=== PATIENT | male | born 1950 | race Caucasian/White ===

== ENCOUNTER → 2016-10-25 | Outpatient (CLI) | payer MEDICARE ==
[~2016-10-25] VITALS: Ht 172.7 cm; Wt 106.6 kg
[~2016-10-25] MED LIST: /PANT40TA; CIPR500T89 PO; COLA100C3 PO; DOXY100T; FLAG500T PO; LIDOCAINE 2% INJ 100 MG/5 ML SYRINGE As Ordered ONE; LISI2.5T; NICO21DI4; NORC1TAB4 PO; NORCOTAB PO; NS 1,000 ML IV SCH; OMEP40CA2 PO; PROPOFOL 200 MG/20 ML VIAL As Ordered ONE; VICO5TAB; VIT B 6; VITA100027; VITA500T; [UNRECOGNIZED DRUG - OTHER]; biotin
--- NOTE | 2016-10-25 16:18 | ROOR ---
Patient Name: Maximus Zelaya Procedure Date: 10/25/2016 3:40 PM Date of : 1950 Age: 65 Room: [facility] Gender: Male Note Status: Finalized Procedure: Colonoscopy Indications: Positive Cologuard test Providers: Francis THAKKAR MD Referring MD: Zaki Cleary NP Requesting Provider: Medicines: Monitored Anesthesia Care Complications: No immediate complications. Procedure: Pre-Anesthesia Assessment: - The heart rate, respiratory rate, oxygen saturations, blood pressure, adequacy of pulmonary ventilation, and response to care were monitored throughout the procedure. The Colonoscope was introduced through the anus and advanced to the cecum, identified by appendiceal orifice and ileocecal valve. The colonoscopy was performed without difficulty. The patient tolerated the procedure well. The quality of the bowel preparation was fair. Findings: The perianal and digital rectal examinations were normal. An infiltrative, centrally depressed non-obstructing small mass was found in the mid transverse colon. The mass was non-circumferential. The mass measured one cm in length. In addition, its diameter measured twelve mm. No bleeding was present. This was biopsied with a cold forceps for histology. Area was tattooed with an injection of Cindy ink. A few sessile polyps were found in the ascending colon. The polyps were diminutive in size. Polypectomy was not attempted. The colon (entire examined portion) was redundant. An area of mild melanosis was found in the entire colon. Impression: - Rule out malignancy, small infiltrative, centrally depressed tumor in the proximal to mid transverse colon. Biopsied. Tattooed. - Preparation of the colon was fair. Long Redundant colon. - A few diminutive polyps in the ascending colon. Resection not attempted. - Melanosis in the colon. Recommendation: - Await pathology results. - If the pathology report is malignant, then refer to a surgeon. - If the pathology report is benign, then repeat colonoscopy for attempt at piecemeal polypectomy. Francis Thakkar MD Francis THAKKAR MD 10/25/2016 4:18:50 PM This report has been signed electronically. Number of Addenda: 0 Note Initiated On: 10/25/2016 3:40 PM Estimated Blood Loss: Estimated blood loss: none.
[2016-10-25 16:30] VITALS: BP 130/78
== END ==
LOC: M OPP 13:25
PROVIDERS: ATTEND Internal Medicine Gastroenterology
DX: R19.5 Other fecal abnormalities (principal); D49.0 Neoplasm of unspecified behavior of digestive system; D12.2 Benign neoplasm of ascending colon; C18.9 Malignant neoplasm of colon, unspecified; Q43.8 Other specified congenital malformations of intestine; K63.89 Other specified diseases of intestine

== ENCOUNTER → 2016-11-15 | Outpatient (CLI) | payer MEDICARE ==
[~2016-11-15] MED LIST changes: -LIDOCAINE 2% INJ 100 MG/5 ML SYRINGE As Ordered ONE; -NS 1,000 ML IV SCH; -PROPOFOL 200 MG/20 ML VIAL As Ordered ONE
[2016-11-15 12:02] LABS: BASO % 0.5 % (0.0-1.0); EOS # 0.2 K/mm3 (0.0-0.50); EOS % 1.8 % (0.0-3.0); LARGE UNSTAINED CELL # 0.1 K/mm3 (0.0-0.4); LARGE UNSTAINED CELL % 1.6 % (0.0-4.0); LYMPH # 1.9 K/mm3 (1.5-4.5); LYMPH % 21.2 % (24.0-44.0); MEAN CORPUSCULAR HEMOGLOBIN 30.8 pg (27.0-33.0); MEAN CORPUSCULAR HGB CONC 33.1 g/dl (32.0-36.5); MONO # 0.6 K/mm3 (0.0-0.8); MONO % 7.1 % (0.0-5.0); NEUTROPHILS # 5.9 K/mm3 (1.8-7.7); NEUTROPHILS % 67.7 % (36.0-66.0); PLATELET COUNT, AUTOMATED 218 k/mm3 (150-450); RED CELL DISTRIBUTION WIDTH 12.9 % (11.5-14.5); WHITE BLOOD COUNT 8.7 K/mm3 (4.0-10.0)
[2016-11-15 12:37] LABS: ALBUMIN 3.3 GM/DL (3.2-5.2); ALKALINE PHOSPHATASE 87 U/L (45-117); ALT/SGPT 25 U/L (12-78); ANION GAP 9 MEQ/L (8-16); AST/SGOT 20 U/L (15-37); BILIRUBIN,TOTAL 0.5 MG/DL (0.2-1.0); BLOOD UREA NITROGEN 16 MG/DL (7-18); CALCIUM LEVEL 8.1 MG/DL (8.8-10.2); CARBON DIOXIDE LEVEL 25 MEQ/L (21-32); CHLORIDE LEVEL 107 MEQ/L (98-107); CHOLESTEROL LEVEL 198 MG/DL (<200); CREATININE FOR GFR 1.24 MG/DL (0.70-1.30); GLOMERULAR FILTRATION RATE > 60.0 (>49); GLUCOSE, FASTING 118 MG/DL (80-110); POTASSIUM SERUM 4.2 MEQ/L (3.5-5.1); SODIUM LEVEL 141 MEQ/L (136-145); TOTAL PROTEIN 6.6 GM/DL (6.4-8.2); TRIGLYCERIDES LEVEL 225 MG/DL (<150)
[2016-11-16 14:10] LABS: PSA TOTAL 1.3 ng/mL (0.0-4.0)
== END ==
LOC: M LAB 11:16
PROVIDERS: ATTEND Nurse Practitioner Family
DX: K21.9 Gastro-esophageal reflux disease without esophagitis (principal); Z12.5 Encounter for screening for malignant neoplasm of prostate; Z13.220 Encounter for screening for lipoid disorders; I10 Essential (primary) hypertension

== ENCOUNTER 2016-11-19 14:00 | Inpatient (IN) | payer MEDICARE ==
[~2016-11-19] VITALS: Ht 172.7 cm; Wt 106.2 kg
--- NOTE | 2016-11-25 10:28 | HPE ---
DATE OF ADMISSION: 11/26/2016 HISTORY OF PRESENT ILLNESS: The patient is a 66-year-old male who has had a Cologuard testing in August of this year and was referred to Dr. Thakkar's office and then had a followup of colonoscopy. Colonoscopy revealed a lesion in the transverse colon. The lesion was not a very large lesion and measured 1 cm in length and overall was up to 12 mm in diameter. Otherwise, this was biopsied and revealed adenocarcinoma. He tattooed this area and the implied that it was in the mid transverse colon. He came to the office for evaluation and plans for surgical treatment of this lesion. He has not had any previous colon cancers. No nausea or vomiting. No diarrhea. No significant constipation that is otherwise controlled well with stool softeners. He had a CT scan which revealed no evidence of metastatic disease. The primary was not appreciated on the CT scan itself. PAST MEDICAL HISTORY (significant for): 1. History of right kidney surgery for history of colon cancer. 2. History of perforated small bowel for small bowel obstruction with small-bowel resection. 3. History of chronic obstructive pulmonary disease. 4. History of morbid obesity. 5. History of gastroesophageal reflux disease. 6. History of pulmonary emphysema. MEDICATIONS (include the following): - Anoro Ellipta - aspirin 81 mg - cyclobenzaprine - Dulcolax - Flagyl - neomycin for a preoperative bowel prep - omega 3 - omeprazole - Probiotic PHYSICAL EXAMINATION: Reveals an obese white male who looks stated age. HEENT: Reveals an atraumatic, normocephalic head with extraocular movements intact. Pupils are equal and reactive to light. Sclerae nonicteric. Oropharynx clear without exudate or lesions. Neck: Supple without adenopathy. Lungs are diminished bilaterally with a few wheezes and crackles at the bases. Heart is regular. Abdomen is obese, nontender, nondistended. He has a diastasis rectus in the upper midline and he has a small umbilical hernia. He has had previous midline incision. Otherwise, no masses are appreciated. No splenomegaly. IMPRESSION AND PLAN: The patient has evidence of a transverse colon cancer. The plan for him is to undergo a laparoscopic-assisted transverse colectomy. I do feel with his right colectomy that he may have additional adhesions which may complicate operative intervention, but he also has a midline incision secondary to this perforated small bowel which may complicate operative intervention from a laparoscopic standpoint. We will attempt this laparoscopically; however, it may require an open approach. He understands this and would like to proceed with this. In addition, if this is a lesion that is closer to the hepatic flexure, given the presentation on the CAT scan of most of the cecum/hepatic flexure in the right upper quadrant, it may end up being an extended right colectomy instead of a true transverse colectomy, and everything will depend on the location of the lesion and the tattooed area. The operation was discussed with the patient. Preoperative antibiotics and bowel prep was discussed with the patient. The patient understands the risks include, but are not limited to infection, bleeding, damage to surrounding structures including bowel, bladder, nerves, vessels, liver, duodenum, pancreas, etc. He understands that there is a possibility of an ostomy, although very low likelihood. He also understands that there is a possibility of an anastomotic leak or complications associated with the anastomosis itself. More importantly, he understands that his morbid obesity and his chronic obstructive pulmonary disease (COPD) issues are a separate issue, but indeed will impact his postoperative outcome and will make it much more likely that he has respiratory issues postoperatively. He understands and would like to proceed with this as scheduled.
[2016-11-26] VITALS (7 sets, daily range): BP systolic 86–128; BP diastolic 50–58
[2016-11-26] MEDS ORDERED: LR 1,000 ML IV ONE (08:45)
[2016-11-26] MEDS ORDERED: PIPERACILLIN/TAZOBACTAM SOD 3.375 GM in D5W MINI-BAG PLUS 50 ML IV ONE (08:45)
[2016-11-26] MEDS ORDERED: METR500T10 (09:00)
[2016-11-26] MEDS ORDERED: CYCL10TA (09:00)
[2016-11-26] MEDS ORDERED: COMBAER6 (09:00)
[2016-11-26] MEDS ORDERED: GAVISOL3 (09:00)
[2016-11-26] MEDS ORDERED: IBUP80TA (09:00)
[2016-11-26] MEDS ORDERED: FLUT1SPR2 (09:00)
[2016-11-26] MEDS ORDERED: NEOM50TA (09:00)
[2016-11-26] MEDS ORDERED: BUPIVACAINE/EPIN 0.25% 30 ML VIAL As Ordered ONE (09:51)
[2016-11-26] MEDS ORDERED: BUPIVACAINE LIPOSOME/PF 1.3% 20 ML VIAL (13.3MG/ML)(EXPAREL) As Ordered ONE (11:50)
[2016-11-26] MEDS ORDERED: fentaNYL 250 MCG/5 ML INJECTION (J3010) As Ordered ONE (11:50)
[2016-11-26] MEDS ORDERED: MIDAZOLAM INJ 2 MG/2 ML VIAL (J2250) As Ordered ONE (11:50)
[2016-11-26] MEDS ORDERED: LIDOCAINE 2% INJ 100 MG/5 ML SDV (FOR ANES.) As Ordered ONE (11:50)
[2016-11-26] MEDS ORDERED: ONDANSETRON 4MG/2ML VIAL (J2405) As Ordered ONE (11:50)
[2016-11-26] MEDS ORDERED: dexameTHASONE 4 MG/ML 1ML VIAL (J1100) As Ordered ONE (11:50)
[2016-11-26] MEDS ORDERED: BUPIVACAINE HCL 0.25% 10 ML VIAL As Ordered ONE (11:50)
[2016-11-26] MEDS ORDERED: ROCURONIUM BROMIDE 50 MG/5 ML VIAL As Ordered ONE ×2 (11:50→13:25)
[2016-11-26] MEDS ORDERED: PROPOFOL 200 MG/20 ML VIAL As Ordered ONE (11:50)
[2016-11-26] MEDS ORDERED: KETOROLAC 60 MG/2 ML VIAL (J1885) As Ordered ONE (11:50)
[2016-11-26] MEDS ORDERED: HYDROmorphone HCL 2 MG/ML 1ML VIAL (J1170) As Ordered ONE (11:50)
[2016-11-26] MEDS ORDERED: NEOSTIGMINE 1MG/ML 5 ML SYRINGE (J2710) As Ordered ONE (12:10)
[2016-11-26] MEDS ORDERED: LABETALOL HCL 100 MG/20 ML VIAL As Ordered ONE (12:10)
[2016-11-26] MEDS ORDERED: GLYCOPYRROLATE INJ 0.2 MG/ML 2 ML VIAL As Ordered ONE (12:10)
[2016-11-26] MEDS: LR 1,000 ML IV SCH ×2 (15:47→22:50)
[2016-11-26] MEDS ORDERED: NS 1,000 ML IV SCH (15:47)
[2016-11-26] MEDS ORDERED: MORPHINE 1MG/ML IN 0.9% NACL 100ML IV BAG As Ordered ONE (15:51)
[2016-11-26] MEDS ORDERED: NALOXONE INJ 0.4 MG/1 ML VIAL (J2310) IV PRN (16:00)
[2016-11-26] MEDS ORDERED: PROMETHAZINE INJ 25 MG/ML VIAL (J2550) IV PRN (16:00)
[2016-11-26] MEDS ORDERED: EPIDURAL/PCA KEYS XX PRN (16:00)
[2016-11-26] MEDS ORDERED: ONDANSETRON 4MG/2ML VIAL (J2405) IV PRN ×3 (16:00→16:30)
[2016-11-26] MEDS ORDERED: MORPHINE 1MG/ML IN 0.9% NACL 100ML IV BAG IV PRN (16:00)
[2016-11-26] MEDS ORDERED: diphenhydrAMINE INJ 50MG/ML VIAL (J1200) IV PRN (16:00)
[2016-11-26] MEDS ORDERED: NALBUPHINE HCL 10 MG/ML AMP (J2300) IV PRN (16:00)
[2016-11-26] MEDS ORDERED: IPRATROPIUM 0.5MG/ALBUTEROL 2.5MG INH SOL UD 3ML (DUONEB)(J7620) NEB PRN (16:00)
[2016-11-26] MEDS ORDERED: METOCLOPRAMIDE INJ 10MG/2ML VIAL (J2765) IV PRN (16:00)
[2016-11-26] MEDS ORDERED: MORPHINE 2 MG/ML 1ML SYRINGE IV PRN (16:30)
[2016-11-26] MEDS ORDERED: fentaNYL 100 MCG/2 ML INJECTION (J3010) IV PRN (16:30)
[2016-11-26] MEDS ORDERED: LR 1,000 ML IV SCH (16:30)
[2016-11-26] MEDS: PIPERACILLIN/TAZOBACTAM SOD 3.375 GM in D5W MINI-BAG PLUS 50 ML IV SCH (18:00)
[2016-11-26] MEDS ORDERED: NS 1,000 ML IV ONE (19:00)
[2016-11-26] MEDS: IPRATROPIUM 0.5MG/ALBUTEROL 2.5MG INH SOL UD 3ML (DUONEB)(J7620) NEB SCH (20:00)
[2016-11-26] MEDS ORDERED: NACL IV STA (21:20)
[2016-11-26] MEDS ORDERED: HETASTARCH IV STA (21:20)
[2016-11-27 01:08] VITALS: BP 99/58
[2016-11-27] MEDS: IPRATROPIUM 0.5MG/ALBUTEROL 2.5MG INH SOL UD 3ML (DUONEB)(J7620) NEB SCH ×4 (02:00→20:00)
[2016-11-27 02:30] VITALS: BP 99/61
[2016-11-27] MEDS: LR 1,000 ML IV SCH ×2 (02:50→06:50)
[2016-11-27] MEDS: PIPERACILLIN/TAZOBACTAM SOD 3.375 GM in D5W MINI-BAG PLUS 50 ML IV SCH ×6 (05:23→23:27)
[2016-11-27 06:28] VITALS: BP 113/57
[2016-11-27 06:53] LABS: MEAN CORPUSCULAR HEMOGLOBIN 31.5 pg (27.0-33.0); MEAN CORPUSCULAR HGB CONC 34.4 g/dl (32.0-36.5); MEAN CORPUSCULAR VOLUME 91.5 fl (80.0-96.0); RED CELL DISTRIBUTION WIDTH 12.9 % (11.5-14.5); WHITE BLOOD COUNT 15.4 K/mm3 (4.0-10.0)
[2016-11-27 07:12] LABS: CALCIUM LEVEL 6.9 MG/DL (8.8-10.2); CREATININE FOR GFR 1.68 MG/DL (0.70-1.30); GLOMERULAR FILTRATION RATE 43.9 (>49)
[2016-11-27 07:16] LABS: POTASSIUM SERUM 5.3 MEQ/L (3.5-5.1)
[2016-11-27] MEDS: NS 1,000 ML IV SCH ×2 (08:01→18:15)
[2016-11-27] MEDS: ALVIMOPAN 12 MG CAPSULE (ENTEREG) PO SCH ×2 (09:57→19:24)
[2016-11-27] MEDS: PANTOPRAZOLE 40MG INJ (PROTONIX) (C9113) IV SCH (09:57)
[2016-11-27 10:00] VITALS: BP 119/62
[2016-11-27 14:00] VITALS: BP 135/68
[2016-11-27 20:00] VITALS: BP 112/67
[2016-11-28] VITALS: BP 105/63
[2016-11-28] MEDS: IPRATROPIUM 0.5MG/ALBUTEROL 2.5MG INH SOL UD 3ML (DUONEB)(J7620) NEB SCH ×4 (02:00→20:00)
[2016-11-28 04:00] VITALS: BP 109/62
[2016-11-28] MEDS: NS 1,000 ML IV SCH (05:40)
[2016-11-28] MEDS: PIPERACILLIN/TAZOBACTAM SOD 3.375 GM in D5W MINI-BAG PLUS 50 ML IV SCH (05:41)
[2016-11-28 06:03] VITALS: BP 113/68
[2016-11-28 07:04] LABS: MEAN CORPUSCULAR HGB CONC 33.2 g/dl (32.0-36.5); MEAN CORPUSCULAR VOLUME 93.6 fl (80.0-96.0); RED CELL DISTRIBUTION WIDTH 13.1 % (11.5-14.5); WHITE BLOOD COUNT 11.8 K/mm3 (4.0-10.0)
[2016-11-28 07:17] LABS: ANION GAP 4 MEQ/L (8-16); BLOOD UREA NITROGEN 20 MG/DL (7-18); CALCIUM LEVEL 7.3 MG/DL (8.8-10.2); CARBON DIOXIDE LEVEL 27 MEQ/L (21-32); CHLORIDE LEVEL 109 MEQ/L (98-107); CREATININE FOR GFR 1.15 MG/DL (0.70-1.30); GLOMERULAR FILTRATION RATE > 60.0 (>49); GLUCOSE, FASTING 116 MG/DL (80-110); POTASSIUM SERUM 4.4 MEQ/L (3.5-5.1); SODIUM LEVEL 140 MEQ/L (136-145)
[2016-11-28] MEDS: PANTOPRAZOLE 40MG INJ (PROTONIX) (C9113) IV SCH (09:00)
[2016-11-28] MEDS ORDERED: ACETAMINOPHEN TAB 650MG DOSE (2X325MG) PO PRN (09:45)
[2016-11-28] MEDS: OMEPRAZOLE 20 MG CAP PO SCH ×2 (10:01→20:17)
[2016-11-28] MEDS: ALVIMOPAN 12 MG CAPSULE (ENTEREG) PO SCH ×2 (10:03→20:18)
--- NOTE | 2016-11-28 13:15 | IPN ---
DATE: 11/28/2016 The patient overall has been doing well last night, did have some flatus overnight. No nausea. No vomiting. No fevers. No chills. He did have a low-grade temperature of 99 this morning, but otherwise has been doing well. 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 He is, at this time, not complaining of any additional pain or problems but does not feel that he can adequately get out of bed by himself to use the commode, thus he would like to keep the catheter in his bladder for another day which I feel is reasonable. His vitals were stable overnight. His intake and output show significant urine output this morning. PHYSICAL EXAMINATION: He is morbidly obese but he is nontender. He has no guarding. No rebound. No peritoneal signs. Mildly uncomfortable at the incision site which is not significant given the overall large size of his incision. IMPRESSION AND PLAN: The patient is status post right colectomy and my recommendation, at this time, is to have him increase his activity and once he continues to increase his activity over time, we will have him probably ready for removal of the catheter. Once we can remove his catheter then we can advance his activities slightly more. From a diet standpoint, we will start him on some clear liquids today and hopefully advance him to a regular diet tomorrow.
[2016-11-28 22:00] VITALS: BP 114/61
[2016-11-28] MEDS: zolPIDEM TARTRATE 10MG TAB PO PRN (22:55)
[2016-11-28] MEDS: NORCO, ANEXSIA 5/325MG TABLET (HYDROcodone/ACETAMINOPHEN) PO PRN (22:56)
[2016-11-29] MEDS: IPRATROPIUM 0.5MG/ALBUTEROL 2.5MG INH SOL UD 3ML (DUONEB)(J7620) NEB SCH ×4 (01:35→19:33)
[2016-11-29 06:00] VITALS: BP 148/73
[2016-11-29 06:55] LABS: MEAN CORPUSCULAR HEMOGLOBIN 30.6 pg (27.0-33.0); MEAN CORPUSCULAR HGB CONC 33.1 g/dl (32.0-36.5); MEAN CORPUSCULAR VOLUME 92.3 fl (80.0-96.0); RED CELL DISTRIBUTION WIDTH 13.4 % (11.5-14.5); WHITE BLOOD COUNT 10.5 K/mm3 (4.0-10.0)
[2016-11-29 07:18] LABS: ANION GAP 5 MEQ/L (8-16); BLOOD UREA NITROGEN 12 MG/DL (7-18); CALCIUM LEVEL 7.5 MG/DL (8.8-10.2); CARBON DIOXIDE LEVEL 29 MEQ/L (21-32); CHLORIDE LEVEL 107 MEQ/L (98-107); CREATININE FOR GFR 0.91 MG/DL (0.70-1.30); GLOMERULAR FILTRATION RATE > 60.0 (>49); GLUCOSE, FASTING 100 MG/DL (80-110); POTASSIUM SERUM 4.2 MEQ/L (3.5-5.1); SODIUM LEVEL 141 MEQ/L (136-145)
[2016-11-29] MEDS: OMEPRAZOLE 20 MG CAP PO SCH ×2 (09:22→20:20)
[2016-11-29] MEDS: ALVIMOPAN 12 MG CAPSULE (ENTEREG) PO SCH ×2 (09:23→20:20)
[2016-11-29] MEDS: NORCO, ANEXSIA 5/325MG TABLET (HYDROcodone/ACETAMINOPHEN) PO PRN ×2 (11:27→22:42)
--- NOTE | 2016-11-29 12:06 | RO ---
DATE OF PROCEDURE: 11/26/2016 PREOPERATIVE DIAGNOSIS: Transverse colon cancer. POSTOPERATIVE DIAGNOSIS: Hepatic flexure cancer. PROCEDURES: 1. Laparoscopic lysis of adhesions. 2. Open right colectomy. SURGEON: Amilcar Carlos Jr., MD PATTERN ATTENDANT: Dr. Bella Blanco assisted with retraction, exposure and completion of the anastomosis. ANESTHESIA: general endotracheal anesthesia. ESTIMATED BLOOD LOSS: Minimal. FLUIDS: Crystalloid. BRIEF PROCEDURE SUMMARY: The patient was brought to the operating room and was given anesthesia. After adequate anesthesia was established, the patient was prepped and draped in the usual sterile fashion. Preoperatively, the CAT scan had been reviewed and indeed revealed an elevated hepatic flexure, given the previous right nephrectomy performed, and the hepatic flexure/right colon was sitting in the bed of the previous nephrectomy site. After prepping and draping in the usual sterile fashion, a supraumbilical 5 mm trocar was placed, after insufflation with 15 mm pressure under direct visualization, a 5 mm trocar was placed and there were some adhesions along the midline which were taken down with a harmonic scalpel, after placing a second supraumbilical 10 mm trocar. Once all the adhesions were taken down along the anterior abdomen, there were numerous adhesions in the right upper quadrant and a significant amount of these were taken down with first grasping the omentum and taking the colon off the transverse colon and mobilizing the transverse colon from its midline up into the right upper quadrant area. After several additional trocars were placed for grasping and for mobilization of the colon, it was obvious that going back and forth and trying to get up into the hepatic flexure area, this was deep, underlying, and posterior to the liver in this area. In any case, initially it was difficult to find the tattooing. It was not in the mid transverse, and matter of fact it was closer to the hepatic flexure and the location was closer to what appeared to be the right adjacent to the gallbladder fossa. Thus, at this point, it was obvious that the hepatic flexure needed to be mobilized. Attempts at this were performed and we persisted for quite a while taking down numerous adhesions, but given visualization it was impossible to adequately visualize this area given the posterior aspect of it, and thus, a conversion to open operation was performed. A midline incision was made with skin knife. Electrocautery was used cut through dermis, underlying subcutaneous tissue down to the fascia. The incision was opened widely and using a Bookwalter retractor, we gained access to the right upper quadrant much better. The transverse colon was further mobilized off the omentum in this area and dissection along this avascular plane up into the right subcostal area was performed. Once we are able to get up distally into this area, harmonic scalpel was used to transect some small adhesions in this area. There were a few small vessels, which were clipped prior to transecting. The dissection also continued on the lateral aspect of the cecum and continuing up along the white line of [place] in this area or what would be presumably a new area of scarring of the colon in this area up against the right upper abdominal wall. Eventually, the colon was mobilized off as well and after mobilizing the entire right colon, it was obvious that to perform an anastomosis, although there was enough colon present, to mobilize this adequately the entire ileocolic vessels needed to be mobilized to gain access to an adequate anastomosis. Thus, I felt that an extended right colectomy was more appropriate and thus the terminal ileum was transected with a CHING stapler. The ileocolic vessels were transected with a CHING echelon white load and vascular staplers were placed along the mesentery of the right colon and along the hepatic side of the right colic artery. The transverse colon was transected using a CHING stapler. A [id number] anastomosis was created and the enterotomy site was closed with a CHING 75 stapler. The mesenteric defect was closed with #2-0 Vicryl in a running manner. The suture line seemed to be quite nicely intact; however, some additional imbricating #3-0 Vicryl were used to imbricate the suture line slightly in this area where the crotch was, as well as the [id number] portion of this. Otherwise, a good blood supply was appreciated at the enterotomy closure site. There was a somewhat raw surface where the hepatic vessels, hepatic flexure mesentery was taken down and no specific vessel was appreciated, but Zia was placed on this area and good hemostasis was achieved. Same as with the area of the ileocolic vessels given the significant fatty tissue this individual had. I anticipate it was mostly just small vessels within the mesenteric fat. In any case, after adequate hemostasis was achieved the abdomen had been previously copiously irrigated until clear. The midline was closed with looped #0 PDS in a running manner and the incision closed with jose. A separate closure tray was used for this closure. The patient was awakened, extubated, brought to the recovery room awake, alert and hemodynamically stable after placing local anesthesia along his incision.
[2016-11-29 14:00] VITALS: BP 124/69
[2016-11-29] MEDS ORDERED: COMBIVENT RESPIMAT 100-20MCG INHALER 4GM INH PRN (16:15)
[2016-11-29 22:00] VITALS: BP 134/61
[2016-11-30] MEDS: IPRATROPIUM 0.5MG/ALBUTEROL 2.5MG INH SOL UD 3ML (DUONEB)(J7620) NEB SCH ×4 (01:18→20:00)
[2016-11-30 06:00] VITALS: BP 132/73
[2016-11-30 06:21] LABS: MEAN CORPUSCULAR HEMOGLOBIN 31.1 pg (27.0-33.0); MEAN CORPUSCULAR VOLUME 91.4 fl (80.0-96.0); RED CELL DISTRIBUTION WIDTH 13.5 % (11.5-14.5); WHITE BLOOD COUNT 9.6 K/mm3 (4.0-10.0)
[2016-11-30 06:34] LABS: ANION GAP 7 MEQ/L (8-16); BLOOD UREA NITROGEN 11 MG/DL (7-18); CALCIUM LEVEL 7.6 MG/DL (8.8-10.2); CARBON DIOXIDE LEVEL 26 MEQ/L (21-32); CHLORIDE LEVEL 105 MEQ/L (98-107); CREATININE FOR GFR 0.92 MG/DL (0.70-1.30); GLOMERULAR FILTRATION RATE > 60.0 (>49); GLUCOSE, FASTING 112 MG/DL (80-110); POTASSIUM SERUM 3.6 MEQ/L (3.5-5.1); SODIUM LEVEL 138 MEQ/L (136-145)
[2016-11-30] MEDS: OMEPRAZOLE 20 MG CAP PO SCH ×2 (09:27→20:08)
[2016-11-30] MEDS: ALVIMOPAN 12 MG CAPSULE (ENTEREG) PO SCH ×2 (09:27→20:08)
[2016-11-30] MEDS: NORCO, ANEXSIA 5/325MG TABLET (HYDROcodone/ACETAMINOPHEN) PO PRN (09:28)
--- NOTE | 2016-11-30 11:43 | IPNPDOC ---
Subjective General Date/Time Seen The patient was seen on 11/30/16 at 11:34. Subject Chief Complaint/History The patient is a 66-year-old male admitted with a reason for visit of Colon Cancer. POD 4 Right colectomy So far seems tolerating liquids, wants to try some soft foods. Reports BM. Current Medications Current Medications Current Medications Acetaminophen (Tylenol Tab) 650 mg Q4HP PRN PO PAIN OR FEVER; Start 11/28/16 at 09:45; Stop 12/28/16 at 09:44 Acetaminophen/ Hydrocodone Bitart ([place], Anexsia 5/325) 1 tab Q4HP PRN PO MILD /MODERATE PAIN (PS 1-7) Last administered on 11/30/16 09:28; Start 11/28/16 at 09:45; Stop 12/05/16 at 09:44 Albuterol/ Ipratropium (Combivent Respimat 100-20mcg) 1 puff DAILYPRN PRN INH SHORTNESS OF BREATH; Start 11/29/16 at 16:15; Stop 12/29/16 at 16:14 Albuterol/ Ipratropium (Duoneb (Ipr 0.5mg/Alb 2.5mg)) 3 ml Q2HP PRN NEB SOB/ WHEEZING; Start 11/26/16 at 16:00; Stop 12/26/16 at 15:59 Albuterol/ Ipratropium (Duoneb (Ipr 0.5mg/Alb 2.5mg)) 3 ml RQ6H NEB ; Start 11/26 at 20:00; Stop 12/26/16 at 19:59 Alvimopan (Entereg) 12 mg BID PO Last administered on 11/30/16 09:27; Start at 09:00; Stop 12/04/16 at 08:59 Diphenhydramine HCl (Benadryl) 12.5 mg Q4HP PRN IV ITCHING; Start 11/26/16 at 16 :00; Stop 11/28/16 at 08:39; Status DC Fentanyl Citrate (Sublimaze) 25 mcg Q5MP PRN IV MODERATE PAIN (PS 4-7); Start 11/26/16 at 16:30; Stop 11/26/16 at 17:30; Status DC Hetastarch/Sodium Chloride (Voluven) 500 ml STAT STAT IV Last administered on 11/26/16 22:32; Start 11/26/16 at 21:20; Stop 11/26/16 at 21:22; Status DC Ketorolac Tromethamine (ToRADol) 10 mg Q6HP PRN PO PAIN; Start 11/28/16 at 09: 45; Stop 12/03/16 at 09:44 Lactated Ringer's 1,000 ml @ 80 mls/hr [id number] IV ; Start 11/26/16 at 16:30; Stop 11/26/16 at 17:30; Status DC Lactated Ringer's 1,000 ml @ 250 mls/hr Q4H IV ; Start 11/26/16 at 15:47; Stop 11/27/16 at 07:25; Status DC Metoclopramide HCl (REGLAN INJection) 10 mg Q6HP PRN IV NAUSEA OR VOMITING; Start 11/26/16 at 16:00; Stop 12/26/16 at 15:59 Morphine Sulfate (Morphine Sulfate In 0.9%Nacl Iv Bag) Concentration 1 mg/ml ASDIRECTED PRN IV SEE LABEL COMMENTS Last administered on 11/26/16 16:15; Start 11/26/16 at 16:00; Stop 11/28/16 at 08:39; Status DC Morphine Sulfate (Morphine Sulfate Inj) 2 mg Q5MP PRN IV MODERATE/SEVERE PAIN ( PS 7-10); Start 11/26/16 at 16:30; Stop 11/26/16 at 17:30; Status DC Nalbuphine HCl (Nubain) 2.5 mg Q6HP PRN IV PRURITIS; Start 11/26/16 at 16:00; Stop 11/28/16 at 08:39; Status DC Naloxone HCl (Narcan) 0.1 mg Q5MP PRN IV SEE LABEL COMMENTS; Start 11/26/16 at 16:00; Stop 11/28/16 at 08:39; Status DC Non-Formulary Medication (Epidural/[employer] [place]) USE THIS ENTRY TO VEND ... Q1M PRN XX SEE LABEL COMMENTS; Start 11/26/16 at 16:00; Stop 11/28/16 at 08:39; Status DC Omeprazole (PriLOSEC) 40 mg BID PO Last administered on 5/13/17at 09:27; Start 11/28/16 at 09:00; Stop 12/28/16 at 08:59 Ondansetron HCl (ZOFRAN INJection) 4 mg Q4HP PRN IV NAUSEA OR VOMITING; Start 11/26/16 at 16:30; Stop 11/26/16 at 17:30; Status DC Ondansetron HCl (ZOFRAN INJection) 4 mg Q6HP PRN IV NAUSEA; Start 11/26/16 at 16 :00; Stop 11/26/16 at 16:25; Status DC Ondansetron HCl (ZOFRAN INJection) 4 mg Q6HP PRN IV NAUSEA OR VOMITING Last administered on 11/29/16 20:19; Start 11/26/16 at 16:00; Stop 12/26/16 at 15:59 Pantoprazole Sodium (Protonix) 40 mg DAILY IV Last administered on 11/27/16 09 :57; Start 11/27/16 at 09:00; Stop 11/28/16 at 09:34; Status DC Piperacillin Sod/ Tazobactam Sod 3.375 gm/Dextrose 50 ml @ 50 mls/hr Q6H IV Last administered on 11/28/16 05:41; Start 11/26/16 at 18:00; Stop 11/28/16 at 08:37; Status DC Promethazine HCl (PHENERGAN INJection) 12.5 mg Q6HP PRN IV NAUSEA; Start at 16:00; Stop 12/26/16 at 15:59 Sodium Chloride 1,000 ml @ 15 mls/hr Q24H IV ; Start 11/26/16 at 15:47; Stop 11/26/16 at 16:28; Status DC Sodium Chloride 1,000 ml @ 100 mls/hr Q10H IV Last administered on 11/28/16 05:40; Start 11/27/16 at 07:30; Stop 11/28/16 at 08:39; Status DC Zolpidem Tartrate (Ambien) 10 mg QHSP PRN PO INSOMNIA Last administered on 11/28 22:55; Start 11/26/16 at 16:00; Stop 12/03/16 at 15:59 Allergies Coded Allergies: No Known Drug Allergy (Verified Allergy, Unknown, 10/24/16) Objective Physical Examination Examination GENERAL APPEARANCE:[Patient seen coming out of bathroom, seems short of breath on effort. Comfortable SKIN: [Warm and moist]. HEENT: [Normocephalic, atraumatic. [place] palpebral conjunctiva, anicteric sclerae. Lips and mucosa appear moist]. NECK: [Supple, no thyromegaly. No obvious jugular venous distention]. LUNGS: [Clear to auscultation bilaterally. No wheezing appreciated]. HEART: [No chest wall abnormalities. Regular rate and rhythm with no murmurs appreciated]. ABDOMEN: Abdomen is protuberant, soft, only minimally distended. Tympanitic to percussion. Incision clean, dry, intact. Small hematoma over right lower quadrant port site. EXTREMITIES: [Extremities have no deformities. No edema identified]. Vital Signs Vital Signs Date Time Temp Pulse Resp B/P (MAP) Pulse Ox O2 Delivery O2 Flow Rate FiO2 11/30/16 09:58 16 11/30/16 06:02 Room Air 11/30/16 06:00 98.9 110 132/73 (92) 94 11/29/16 10:54 3.0 11/27/16 21:00 92 I&Os I&O- Last 24 Hours up to 6 AM 11/30/16 06:00 Intake Total 0 ml Output Total 1100 ml Balance -1100 ml Laboratory Data Labs 24H Laboratory Tests 2 11/30/16 05:43: Anion Gap 7L, Glomerular Filtration Rate > 60.0, Blood Urea Nitrogen 11, Creatinine 0.92, Sodium Level 138, Potassium Level 3.6, Chloride Level 105, Carbon Dioxide Level 26, Calcium Level 7.6L CBC/BMP Laboratory Tests 11/30/16 05:43 Red Blood Count 3.32 L, Mean Corpuscular Volume 91.4, Mean Corpuscular Hemoglobin 31.1, Mean Corpuscular Hemoglobin Concent 34.0, Red Cell Distribution Width 13.5, Calcium Level 7.6 L Impression POD 4 Right Colectomy Stable. Would try some soft foods Encouraged patient to ambulate. Plan / VTE VTE Prophylaxis Ordered?: Yes Plan / Urinary Catheter Urinary Catheter: D/C [place] Reason for insertion/continuin: Perioperative SUKHWINDER SEGURA MD November 30, 2016 11:43
[2016-11-30] MEDS: KETOROLAC TROMETHAMINE 10 MG TAB PO PRN (20:08)
[2016-11-30 22:00] VITALS: BP 118/74
[2016-11-30] MEDS: zolPIDEM TARTRATE 10MG TAB PO PRN (22:44)
[2016-12-01] MEDS: IPRATROPIUM 0.5MG/ALBUTEROL 2.5MG INH SOL UD 3ML (DUONEB)(J7620) NEB SCH ×3 (01:23→20:00)
[2016-12-01 06:00] VITALS: BP 109/69
[2016-12-01] MEDS: OMEPRAZOLE 20 MG CAP PO SCH ×2 (08:38→20:08)
[2016-12-01] MEDS: ALVIMOPAN 12 MG CAPSULE (ENTEREG) PO SCH ×2 (08:39→20:08)
--- NOTE | 2016-12-01 10:59 | IPNPDOC ---
Subjective General Date/Time Seen The patient was seen on 12/01/16 at 10:41. Subject Chief Complaint/History The patient is a 66-year-old male admitted with a reason for visit of Colon Cancer. POD5 Right colectomy for colon Cancer Tolerating soft diet, having BMs. Less short of breath today but still desaturates to just below 90% with effort/movement. Pain control adequate. Current Medications Current Medications Current Medications Acetaminophen (Tylenol Tab) 650 mg Q4HP PRN PO PAIN OR FEVER; Start 11/28/16 at 09:45; Stop 12/28/16 at 09:44 Acetaminophen/ Hydrocodone Bitart ([place], [place] 5/325) 1 tab Q4HP PRN PO MILD /MODERATE PAIN (PS 1-7) Last administered on 11/30/16 09:28; Start 11/28/16 at 09:45; Stop 12/05/16 at 09:44 Albuterol/ Ipratropium (Combivent Respimat 100-20mcg) 1 puff DAILYPRN PRN INH SHORTNESS OF BREATH; Start 11/29/16 at 16:15; Stop 12/29/16 at 16:14 Albuterol/ Ipratropium (Duoneb (Ipr 0.5mg/Alb 2.5mg)) 3 ml Q2HP PRN NEB SOB/ WHEEZING; Start 11/26/16 at 16:00; Stop 12/26/16 at 15:59 Albuterol/ Ipratropium (Duoneb (Ipr 0.5mg/Alb 2.5mg)) 3 ml RQ6H NEB ; Start 11/26 at 20:00; Stop 12/26/16 at 19:59 Alvimopan (Entereg) 12 mg BID PO Last administered on 12/01/16 08:39; Start at 09:00; Stop 12/04/16 at 08:59 Diphenhydramine HCl (Benadryl) 12.5 mg Q4HP PRN IV ITCHING; Start 11/26/16 at 16 :00; Stop 11/28/16 at 08:39; Status DC Fentanyl Citrate (Sublimaze) 25 mcg Q5MP PRN IV MODERATE PAIN (PS 4-7); Start 11/26/16 at 16:30; Stop 11/26/16 at 17:30; Status DC Hetastarch/Sodium Chloride (Voluven) 500 ml STAT STAT IV Last administered on 11/26/16 22:32; Start 11/26/16 at 21:20; Stop 11/26/16 at 21:22; Status DC Ketorolac Tromethamine (ToRADol) 10 mg Q6HP PRN PO PAIN Last administered on 20:08; Start 11/28/16 at 09:45; Stop 12/03/16 at 09:44 Lactated Ringer's 1,000 ml @ 80 mls/hr [id number] IV ; Start 11/26/16 at 16:30; Stop 11/26/16 at 17:30; Status DC Lactated Ringer's 1,000 ml @ 250 mls/hr Q4H IV ; Start 11/26/16 at 15:47; Stop 11/27/16 at 07:25; Status DC Metoclopramide HCl (REGLAN INJection) 10 mg Q6HP PRN IV NAUSEA OR VOMITING; Start 11/26/16 at 16:00; Stop 12/26/16 at 15:59 Morphine Sulfate (Morphine Sulfate In 0.9%Nacl Iv Bag) Concentration 1 mg/ml ASDIRECTED PRN IV SEE LABEL COMMENTS Last administered on 11/26/16 16:15; Start 11/26/16 at 16:00; Stop 11/28/16 at 08:39; Status DC Morphine Sulfate (Morphine Sulfate Inj) 2 mg Q5MP PRN IV MODERATE/SEVERE PAIN ( PS 7-10); Start 11/26/16 at 16:30; Stop 11/26/16 at 17:30; Status DC Nalbuphine HCl (Nubain) 2.5 mg Q6HP PRN IV PRURITIS; Start 11/26/16 at 16:00; Stop 11/28/16 at 08:39; Status DC Naloxone HCl (Narcan) 0.1 mg Q5MP PRN IV SEE LABEL COMMENTS; Start 11/26/16 at 16:00; Stop 11/28/16 at 08:39; Status DC Non-Formulary Medication (Epidural/WORD PROCESSOR [place]) USE THIS ENTRY TO VEND ... Q1M PRN XX SEE LABEL COMMENTS; Start 11/26/16 at 16:00; Stop 11/28/16 at 08:39; Status DC Omeprazole (PriLOSEC) 40 mg BID PO Last administered on 12/01/16 08:38; Start 11/28/16 at 09:00; Stop 12/28/16 at 08:59 Ondansetron HCl (ZOFRAN INJection) 4 mg Q4HP PRN IV NAUSEA OR VOMITING; Start 11/26/16 at 16:30; Stop 11/26/16 at 17:30; Status DC Ondansetron HCl (ZOFRAN INJection) 4 mg Q6HP PRN IV NAUSEA; Start 11/26/16 at 16 :00; Stop 11/26/16 at 16:25; Status DC Ondansetron HCl (ZOFRAN INJection) 4 mg Q6HP PRN IV NAUSEA OR VOMITING Last administered on 11/29/16 20:19; Start 11/26/16 at 16:00; Stop 12/26/16 at 15:59 Pantoprazole Sodium (Protonix) 40 mg DAILY IV Last administered on 11/27/16 09 :57; Start 11/27/16 at 09:00; Stop 11/28/16 at 09:34; Status DC Piperacillin Sod/ Tazobactam Sod 3.375 gm/Dextrose 50 ml @ 50 mls/hr Q6H IV Last administered on 11/28/16 05:41; Start 11/26/16 at 18:00; Stop 11/28/16 at 08:37; Status DC Promethazine HCl (PHENERGAN INJection) 12.5 mg Q6HP PRN IV NAUSEA; Start at 16:00; Stop 12/26/16 at 15:59 Sodium Chloride 1,000 ml @ 15 mls/hr Q24H IV ; Start 11/26/16 at 15:47; Stop 11/26/16 at 16:28; Status DC Sodium Chloride 1,000 ml @ 100 mls/hr Q10H IV Last administered on 11/28/16 05:40; Start 11/27/16 at 07:30; Stop 11/28/16 at 08:39; Status DC Zolpidem Tartrate (Ambien) 10 mg QHSP PRN PO INSOMNIA Last administered on 11/30 22:44; Start 11/26/16 at 16:00; Stop 5/16/17 at 15:59 Allergies Coded Allergies: No Known Drug Allergy (Verified Allergy, Unknown, 10/24/16) Objective Physical Examination Examination GENERAL APPEARANCE:[Patient seen, laying in bed, awake, alert, and oriented. Comfortable, in no acute distress]. SKIN: [Warm and moist]. HEENT: [Normocephalic, atraumatic. [place] palpebral conjunctiva, anicteric sclerae. Lips and mucosa appear moist]. NECK: [Supple, no thyromegaly. No obvious jugular venous distention]. LUNGS: [Clear to auscultation bilaterally. No wheezing appreciated]. HEART: [No chest wall abnormalities. Regular rate and rhythm with no murmurs appreciated]. ABDOMEN: Abdomen is round, soft, nondistended. Right side port site with bruising/hematoma. Midline incision clean, dry, intact. Nontender on palpation. EXTREMITIES: [Extremities have no deformities. No edema identified]. Vital Signs Vital Signs Date Time Temp Pulse Resp B/P (MAP) Pulse Ox O2 Delivery O2 Flow Rate FiO2 12/01/16 06:00 99.2 103 18 109/69 (82) 91 Room Air 11/30/16 11:44 3.0 11/27/16 21:00 92 I&Os I&O- Last 24 Hours up to 6 AM 12/01/16 05:59 Intake Total 1200 ml Output Total 550 ml Balance 650 ml Impression POD 5 Right Colectomy for Colon Cancer Ok to advance to regular diet Continue ambulation Incentive spirometer, deep breathing exercises wean O2. Plan / VTE VTE Prophylaxis Ordered?: Yes Plan / Urinary Catheter Urinary Catheter: D/C [place] Reason for insertion/continuin: Perioperative SUKHWINDER SEGURA MD December 01, 2016 10:42
[2016-12-01 14:00] VITALS: BP 109/76
[2016-12-01 22:00] VITALS: BP 115/74
[2016-12-01] MEDS: KETOROLAC TROMETHAMINE 10 MG TAB PO PRN (23:01)
[2016-12-02] MEDS: IPRATROPIUM 0.5MG/ALBUTEROL 2.5MG INH SOL UD 3ML (DUONEB)(J7620) NEB SCH ×2 (01:49→07:17)
[2016-12-02 06:00] VITALS: BP 116/61
[2016-12-02] MEDS: OMEPRAZOLE 20 MG CAP PO SCH (08:53)
[2016-12-02] MEDS: ALVIMOPAN 12 MG CAPSULE (ENTEREG) PO SCH (08:54)
[2016-12-02] MEDS ORDERED: NORCOTAB PO (08:55)
--- NOTE | 2016-12-09 10:51 | DSES ---
DATE OF ADMISSION: 11/26/2016 DATE OF DISCHARGE: 12/02/2016 PRINCIPAL DIAGNOSIS: Adenocarcinoma of the hepatic flexure. ASSOCIATED DIAGNOSES: 1. History of right nephrectomy. 2. History of morbid obesity. 3. History of chronic obstructive pulmonary disease (COPD). 4. History of gastroesophageal (GE) reflux. 5. History of pulmonary emphysema/ 6. History of perforated small bowel for small bowel obstruction. 7. History of hernia repair. PROCEDURES PERFORMED: Diagnostic laparoscopy with lysis of adhesions and open extended right colectomy for removal of colon cancer. BRIEF HISTORY OF PRESENT ILLNESS: The patient is a 66-year-old male who had a Cologuard positive study and was referred to Dr. Thakkar's office and had a followup colonoscopy which revealed a lesion in the hepatic area of the transverse colon. He presented for resection of this. HOSPITAL COURSE SUMMARY: The patient was admitted with the above diagnosis. With the patient's previous right nephrectomy and morbid obesity, the patient did require an open operative intervention. After decreasing the amount of intra-abdominal adhesions with laparoscopy, an open colectomy was performed and the anastomosis went without difficulty. Postoperatively, the patient had good pain control with minimal pain medication. He had Exparel placed for local anesthetic which provided some additional good relief. Postoperatively, his major issue was his chronic COPD issues and eventually after a few days he started having some improvement of his respiratory function and eventually was started on a clear liquid diet and advanced to a regular diet. He was eventually discharged home on his usual medications which include Combivent, cyclobenzaprine, Flonase, ibuprofen, omeprazole, as well as [place]. He was to follow up for suture removal in 1 week and to follow up with myself in 2-3 weeks for reevaluation. Final pathology revealed adenocarcinoma of the hepatic flexure [id number].
== END 2016-12-02 11:00 | disposition home or self-care (01) | DRG 331 ==
LOC: M OR 11-26 08:21 → M MS5PR 11-26 18:00
PROVIDERS: ADMIT Surgery; ATTEND Surgery
PROC: 0DTK0ZZ Resection of Ascending Colon, Open Approach (ICD-10-PCS; principal; 2016-11-26 11:15)
DX: C18.4 Malignant neoplasm of transverse colon (principal); E66.01 Morbid (severe) obesity due to excess calories; K21.9 Gastro-esophageal reflux disease without esophagitis; J44.9 Chronic obstructive pulmonary disease, unspecified; Z79.82 Long term (current) use of aspirin; Z79.899 Other long term (current) drug therapy; K66.0 Peritoneal adhesions (postprocedural) (postinfection)

== ENCOUNTER → 2016-11-22 | Outpatient (CLI) | payer MEDICARE ==
[~2016-11-22] MED LIST changes: +COMBAER6; +CYCL10TA; +FLUT1SPR2; +GASTROGRAFIN SOLUTION 30ML (Q9963) As Ordered ONE; +GAVISOL3; +IBUP80TA; +ISOVUE-370 76% 100ML VIAL (Q9967) As Ordered ONE; +METR500T10; +NEOM50TA
--- NOTE | 2016-11-23 12:23 | REP ---
CT ABDOMEN: HISTORY: Colon cancer. Assess for metastatic disease. COMPARISON: 09/20/2015 CONTRAST: 100 mL [id number]. FINDINGS: The lung bases show chronic changes, status quo. There are no pleural or pericardial effusions. The precontrast enhanced portion of the examination shows hepatic and splenic densities to be within normal limits. There are no choleliths or left nephroliths. The patient is status post right nephrectomy. The contrast enhanced portion of the exam shows the liver, gallbladder, spleen, pancreas, adrenal glands, and left kidney are within normal limits and essentially unchanged. The abdominal aorta and paraaortic regions are essentially unchanged remaining within normal limits. There is no free fluid or free air in the abdomen. The bowel loops and their mesenteries are essentially unchanged, remaining within normal limits. There is no intraabdominal mass or adenopathy. CT PELVIS: The bowel loops and their mesenteries are essentially unchanged remaining within normal limits. There is no free fluid or free air. There is no mass or adenopathy. Bone window technique throughout the exam shows no significant change in the appearance of the osseous structures. They appear stable and intact. IMPRESSION: No acute intraabdominal or intrapelvic disease with findings as described above. Signed by Finn Huitron DO 11/23/2016 01:32 P
== END ==
LOC: M RAD 16:10
PROVIDERS: ATTEND Surgery
DX: C18.4 Malignant neoplasm of transverse colon (principal)
CPT/HCPCS: 74178; Q9963; Q9967

== ENCOUNTER → 2017-07-31 | Outpatient (CLI) | payer MEDICARE, MEDICAID ==
[2017-07-31 13:14] LABS: BASO # 0.1 10^3/uL (0.0-0.2); BASO % 0.6 % (0.0-1.0); EOS # 0.2 10^3/uL (0.0-0.50); EOS % 1.9 % (0.0-3.0); HEMATOCRIT 47.7 % (42.0-52.0); HEMOGLOBIN 15.8 g/dl (14.0-18.0); IMMATURE GRANULOCYTE % 0.4 % (0-0); LYMPH # 2.5 10^3/uL (1.5-4.5); LYMPH % 22.7 % (24.0-44.0); MEAN CORPUSCULAR HEMOGLOBIN 30.1 pg (27.0-33.0); MEAN CORPUSCULAR HGB CONC 33.1 g/dl (32.0-36.5); MEAN CORPUSCULAR VOLUME 90.9 fl (80.0-96.0); MONO % 9.1 % (0.0-5.0); NEUTROPHILS # 7.1 10^3/uL (1.8-7.7); NEUTROPHILS % 65.3 % (36.0-66.0); PLATELET COUNT, AUTOMATED 235 10^3/uL (150-450); RED BLOOD COUNT 5.25 10^6/uL (4.30-6.10); RED CELL DISTRIBUTION WIDTH 12.8 % (11.5-14.5); WHITE BLOOD COUNT 10.8 10^3/uL (4.0-10.0)
[2017-07-31 14:16] LABS: ALBUMIN 3.8 GM/DL (3.2-5.2); ALBUMIN/GLOBULIN RATIO 1.09 (1.00-1.93); ALKALINE PHOSPHATASE 95 U/L (45-117); ALT/SGPT 26 U/L (12-78); ANION GAP 5 MEQ/L (8-16); AST/SGOT 21 U/L (7-37); BILIRUBIN,TOTAL 0.4 MG/DL (0.2-1.0); BLOOD UREA NITROGEN 18 MG/DL (7-18); CARBON DIOXIDE LEVEL 31 MEQ/L (21-32); CHLORIDE LEVEL 107 MEQ/L (98-107); CHOLESTEROL LEVEL 204 MG/DL (<200); CREATININE FOR GFR 1.13 MG/DL (0.70-1.30); GLOMERULAR FILTRATION RATE > 60.0 (>49); GLUCOSE, FASTING 100 MG/DL (80-110); HDL CHOLESTEROL 47 MG/DL (>40); LDL CHOLESTEROL 99.6 MG/DL (<100); NON-HDL-C 157 MG/DL; SODIUM LEVEL 143 MEQ/L (136-145); TOTAL PROTEIN 7.3 GM/DL (6.4-8.2); TRIGLYCERIDES LEVEL 287 MG/DL (<150)
== END ==
LOC: M LAB 12:36
DX: K21.9 Gastro-esophageal reflux disease without esophagitis (principal); E78.4 Other hyperlipidemia; I10 Essential (primary) hypertension
CPT/HCPCS: 80053

== ENCOUNTER → 2018-01-09 | Outpatient (CLI) | payer MEDICARE, MEDICAID | LOC: M RAD 08:14 | DX: I10 Essential (primary) hypertension (principal); R91.8 Other nonspecific abnormal finding of lung field | CPT/HCPCS: 71046 ==

== ENCOUNTER → 2018-06-01 | Outpatient (CLI) | payer MEDICARE, MEDICAID ==
[2018-06-01 11:37] LABS: BASO # 0.1 10^3/uL (0.0-0.2); BASO % 0.5 % (0.0-1.0); EOS # 0.3 10^3/uL (0.0-0.50); HEMATOCRIT 50.9 % (42.0-52.0); HEMOGLOBIN 17.1 g/dl (13.5-17.5); IMMATURE GRANULOCYTE % 0.4 % (0-3.0); LYMPH # 2.6 10^3/uL (1.5-4.5); LYMPH % 20.5 % (24.0-44.0); MEAN CORPUSCULAR HEMOGLOBIN 30.4 pg (27.0-33.0); MEAN CORPUSCULAR HGB CONC 33.6 g/dl (32.0-36.5); MEAN CORPUSCULAR VOLUME 90.6 fl (80.0-96.0); MONO % 7.7 % (0.0-5.0); NEUTROPHILS # 8.8 10^3/uL (1.8-7.7); NEUTROPHILS % 68.9 % (36.0-66.0); PLATELET COUNT, AUTOMATED 244 10^3/uL (150-450); RED BLOOD COUNT 5.62 10^6/uL (4.30-6.10); RED CELL DISTRIBUTION WIDTH 12.5 % (11.5-14.5); WHITE BLOOD COUNT 12.8 10^3/uL (4.0-10.0)
[2018-06-01 12:52] LABS: ALBUMIN 3.8 GM/DL (3.2-5.2); ALBUMIN/GLOBULIN RATIO 0.95 (1.00-1.93); ALKALINE PHOSPHATASE 96 U/L (45-117); ALT/SGPT 31 U/L (12-78); ANION GAP 9 MEQ/L (8-16); AST/SGOT 28 U/L (7-37); BILIRUBIN,TOTAL 0.7 MG/DL (0.2-1.0); BLOOD UREA NITROGEN 18 MG/DL (7-18); CALCIUM LEVEL 9.1 MG/DL (8.8-10.2); CARBON DIOXIDE LEVEL 28 MEQ/L (21-32); CHLORIDE LEVEL 104 MEQ/L (98-107); CREATININE FOR GFR 1.33 MG/DL (0.70-1.30); GLOMERULAR FILTRATION RATE 57.3 (>49); GLUCOSE, FASTING 90 MG/DL (70-100); POTASSIUM SERUM 4.6 MEQ/L (3.5-5.1); SODIUM LEVEL 141 MEQ/L (136-145); TOTAL PROTEIN 7.8 GM/DL (6.4-8.2)
== END ==
LOC: M LAB 10:34
DX: Z01.812 Encounter for preprocedural laboratory examination (principal); Z79.899 Other long term (current) drug therapy
CPT/HCPCS: 80053

== ENCOUNTER → 2018-06-15 | Outpatient (CLI) | payer MEDICARE, MEDICAID | LOC: M RAD 10:37 | DX: J44.9 Chronic obstructive pulmonary disease, unspecified (principal); R91.8 Other nonspecific abnormal finding of lung field | CPT/HCPCS: 71250 ==

== ENCOUNTER 2018-06-16 07:30 | Day surgery (SDC) | payer MEDICARE, MEDICAID ==
[2018-06-16] MEDS: LR 1,000 ML IV ×4 (08:48→20:07)
[2018-06-16] MEDS ORDERED: PROPOFOL 200 MG/20 ML VIAL As Ordered (09:21)
[2018-06-16] MEDS ORDERED: ROCURONIUM BROMIDE 50 MG/5 ML VIAL As Ordered (09:21)
[2018-06-16] MEDS ORDERED: LIDOCAINE 2% INJ 100 MG/5 ML SDV (FOR ANES.) As Ordered (09:21)
[2018-06-16] MEDS ORDERED: MIDAZOLAM INJ 2 MG/2 ML VIAL (J2250) As Ordered (09:22)
[2018-06-16] MEDS ORDERED: dexameTHASONE 4 MG/ML 1ML VIAL (J1100) As Ordered ×3 (09:22)
[2018-06-16] MEDS ORDERED: ONDANSETRON 4MG/2ML VIAL (J2405) As Ordered (09:22)
[2018-06-16] MEDS ORDERED: fentaNYL 250 MCG/5 ML INJECTION (J3010) As Ordered (09:22)
[2018-06-16] MEDS ORDERED: KETOROLAC 60 MG/2 ML VIAL (J1885) As Ordered (09:22)
[2018-06-16] MEDS: BUPIVACAINE HCL 0.5% 30 ML VIAL As Ordered (10:07)
[2018-06-16] MEDS: ceFAZolin SOD 1 GM in D5W MINI-BAG PLUS 50 ML IV (10:42)
[2018-06-16] MEDS ORDERED: KETAMINE HCL 200 MG/20 ML VIAL As Ordered (10:53)
[2018-06-16] MEDS ORDERED: SUGAMMADEX SODIUM 500 MG/5 ML VIAL (BRIDION) As Ordered (11:23)
[2018-06-16] MEDS: BUPIVACAINE/EPIN 0.25% 30 ML VIAL As Ordered (11:44)
[2018-06-16] MEDS: BUPIVACAINE HCL 0.25% 30 ML VIAL As Ordered (11:45)
[2018-06-16] MEDS: BUPIVACAINE LIPOSOME/PF 1.3% 20ML VIAL (13.3MG/ML)(EXPAREL)(C9290 PER1MG) As Ordered (11:45)
[2018-06-16] MEDS ORDERED: ONDANSETRON 4MG/2ML VIAL (J2405) IV ×2 (12:15→12:30)
[2018-06-16] MEDS ORDERED: PERCOCET 5MG/325MG TAB As Ordered (12:15)
[2018-06-16] MEDS ORDERED: fentaNYL 100 MCG/2 ML INJECTION (J3010) IV (12:30)
[2018-06-16] MEDS: PERCOCET 5MG/325MG TAB PO (12:33)
[2018-06-16] MEDS: OMEPRAZOLE 20 MG CAP PO (17:13)
[2018-06-16] MEDS: NORCO, ANEXSIA 5/325MG TABLET (HYDROcodone/ACETAMINOPHEN) PO ×2 (18:05→22:20)
[2018-06-17] MEDS: LR 1,000 ML IV ×3 (01:20→13:40)
[2018-06-17] MEDS: NORCO, ANEXSIA 5/325MG TABLET (HYDROcodone/ACETAMINOPHEN) PO ×4 (05:23→18:53)
[2018-06-17] MEDS ORDERED: IPRATROPIUM 0.5MG/ALBUTEROL 2.5MG INH SOL UD 3ML (DUONEB)(J7620) NEB (08:45)
[2018-06-17] MEDS: IPRATROPIUM 0.5MG/ALBUTEROL 2.5MG INH SOL UD 3ML (DUONEB)(J7620) NEB ×3 (08:57→20:13)
[2018-06-17] MEDS: OMEPRAZOLE 20 MG CAP PO ×2 (09:46→20:33)
[2018-06-17] MEDS: SENNA 8.6 MG TAB (SENOKOT) PO ×2 (09:47→20:32)
[2018-06-17] MEDS: MIRALAX *UNIT DOSE* 17GM PACKET PO ×2 (09:48→20:32)
[2018-06-17] MEDS: DOCUSATE SODIUM 100 MG CAP PO ×2 (09:48→20:33)
[2018-06-17] MEDS ORDERED: PILL CRUSHER/CUTTER 1 EACH XX (15:30)
[2018-06-17] MEDS: SIMETHICONE 80 MG CHEW TAB PO ×2 (16:27→20:33)
[2018-06-17] MEDS: MORPHINE 4 MG/ML 1ML VIAL/SYRINGE (J2270) IV (19:58)
[2018-06-18] MEDS: IPRATROPIUM 0.5MG/ALBUTEROL 2.5MG INH SOL UD 3ML (DUONEB)(J7620) NEB ×3 (02:32→14:00)
[2018-06-18] MEDS: NORCO, ANEXSIA 5/325MG TABLET (HYDROcodone/ACETAMINOPHEN) PO ×2 (07:08→14:25)
[2018-06-18] MEDS: MIRALAX *UNIT DOSE* 17GM PACKET PO (10:01)
[2018-06-18] MEDS: SENNA 8.6 MG TAB (SENOKOT) PO (10:04)
[2018-06-18] MEDS: DOCUSATE SODIUM 100 MG CAP PO (10:04)
[2018-06-18] MEDS: OMEPRAZOLE 20 MG CAP PO (10:05)
[2018-06-18] MEDS: SIMETHICONE 80 MG CHEW TAB PO ×2 (10:05→13:28)
[2018-06-18 10:39] LABS: HEMATOCRIT 44.7 % (42.0-52.0); HEMOGLOBIN 14.6 g/dl (13.5-17.5); MEAN CORPUSCULAR HEMOGLOBIN 29.6 pg (27.0-33.0); MEAN CORPUSCULAR HGB CONC 32.7 g/dl (32.0-36.5); MEAN CORPUSCULAR VOLUME 90.7 fl (80.0-96.0); PLATELET COUNT, AUTOMATED 186 10^3/uL (150-450); RED BLOOD COUNT 4.93 10^6/uL (4.30-6.10); RED CELL DISTRIBUTION WIDTH 12.3 % (11.5-14.5); WHITE BLOOD COUNT 11.7 10^3/uL (4.0-10.0)
[2018-06-18 11:00] LABS: ANION GAP 4 MEQ/L (8-16); BLOOD UREA NITROGEN 13 MG/DL (7-18); CALCIUM LEVEL 8.4 MG/DL (8.8-10.2); CARBON DIOXIDE LEVEL 30 MEQ/L (21-32); CHLORIDE LEVEL 105 MEQ/L (98-107); CREATININE FOR GFR 1.21 MG/DL (0.70-1.30); GLOMERULAR FILTRATION RATE > 60.0 (>49); GLUCOSE, FASTING 117 MG/DL (70-100); POTASSIUM SERUM 4.4 MEQ/L (3.5-5.1); SODIUM LEVEL 139 MEQ/L (136-145)
== END 2018-06-18 14:50 | disposition home or self-care (01) ==
LOC: M SDC 07:30 → M MS5PR 13:15
DX: K43.2 Incisional hernia without obstruction or gangrene (principal); K21.9 Gastro-esophageal reflux disease without esophagitis; J44.9 Chronic obstructive pulmonary disease, unspecified; J43.9 Emphysema, unspecified; E78.00 Pure hypercholesterolemia, unspecified; E66.01 Morbid (severe) obesity due to excess calories; Z68.32 Body mass index [BMI] 32.0-32.9, adult; R06.02 Shortness of breath; Z88.8 Allergy status to other drugs, medicaments and biological substances; Z79.899 Other long term (current) drug therapy; Z85.038 Personal history of other malignant neoplasm of large intestine; Z85.528 Personal history of other malignant neoplasm of kidney; Z98.41 Cataract extraction status, right eye; Z98.42 Cataract extraction status, left eye; Z96.1 Presence of intraocular lens; Z87.891 Personal history of nicotine dependence
CPT/HCPCS: 49654

== ENCOUNTER → 2018-12-17 | Outpatient (CLI) | payer MEDICARE, MEDICAID ==
[~2018-12-17] MED LIST changes: -/PANT40TA; +BENA25TA10 PO; +CIPR-249 PO; -CIPR500T89 PO; -COLA100C3 PO; +COLA100C5 PO; -GASTROGRAFIN SOLUTION 30ML (Q9963) As Ordered ONE; +HYDR-3715 PO; -ISOVUE-370 76% 100ML VIAL (Q9967) As Ordered ONE; +METR-265; -METR500T10; +NEOM500T; -NEOM50TA; -NORC1TAB4 PO; +NORC1TAB7 PO; -NORCOTAB PO; +OMEP20CA3 PO; +PROT1TAB2
[2018-12-17 09:32] LABS: BASO # 0.1 10^3/uL (0.0-0.2); BASO % 0.5 % (0.0-1.0); EOS # 0.2 10^3/uL (0.0-0.50); EOS % 1.6 % (0.0-3.0); HEMATOCRIT 46.9 % (42.0-52.0); HEMOGLOBIN 15.6 g/dl (13.5-17.5); LYMPH # 2.1 10^3/uL (1.5-4.5); LYMPH % 19.2 % (24.0-44.0); MEAN CORPUSCULAR HEMOGLOBIN 30.1 pg (27.0-33.0); MEAN CORPUSCULAR HGB CONC 33.3 g/dl (32.0-36.5); MEAN CORPUSCULAR VOLUME 90.5 fl (80.0-96.0); MONO # 0.8 10^3/uL (0.0-0.8); MONO % 6.9 % (0.0-5.0); NEUTROPHILS # 7.8 10^3/uL (1.8-7.7); NEUTROPHILS % 71.3 % (36.0-66.0); PLATELET COUNT, AUTOMATED 214 10^3/uL (150-450); RED BLOOD COUNT 5.18 10^6/uL (4.30-6.10); WHITE BLOOD COUNT 10.9 10^3/uL (4.0-10.0)
[2018-12-17 10:01] LABS: ALBUMIN 3.6 GM/DL (3.2-5.2); ALT/SGPT 19 U/L (12-78); BILIRUBIN,TOTAL 0.4 MG/DL (0.2-1.0); BLOOD UREA NITROGEN 16 MG/DL (7-18); CALCIUM LEVEL 9.2 MG/DL (8.8-10.2); CARBON DIOXIDE LEVEL 29 MEQ/L (21-32); CHLORIDE LEVEL 108 MEQ/L (98-107); CHOLESTEROL LEVEL 183 MG/DL (<200); CHOLESTEROL RISK RATIO 4.575 (<5); CREATININE FOR GFR 1.23 MG/DL (0.70-1.30); GLOMERULAR FILTRATION RATE > 60.0 (>49); GLUCOSE, FASTING 108 MG/DL (70-100); HDL CHOLESTEROL 40 MG/DL (>40); LDL CHOLESTEROL 98 MG/DL (<100); NON-HDL-C 143 MG/DL; POTASSIUM SERUM 4.2 MEQ/L (3.5-5.1); SODIUM LEVEL 142 MEQ/L (136-145); TOTAL PROTEIN 6.6 GM/DL (6.4-8.2); TRIGLYCERIDES LEVEL 227 MG/DL (<150)
== END ==
LOC: M LAB 09:00
PROVIDERS: ATTEND Nurse Practitioner Family
DX: K21.9 Gastro-esophageal reflux disease without esophagitis (principal); I10 Essential (primary) hypertension; E78.49 Other hyperlipidemia

== ENCOUNTER → 2019-05-27 | Outpatient (CLI) | payer MEDICARE, MEDICAID ==
[~2019-05-27] MED LIST changes: -OMEP20CA3 PO; +OMEP20CA4 PO; -OMEP40CA2 PO; +OMEP40CA97 PO
--- NOTE | 2019-05-27 10:33 | REP ---
Two-view chest: 05/27/2019. Indication: Hypertension. Dyspnea. Comparison: 01/09/2018. Findings: Bibasilar atelectasis and small nodular density of the right lower lobe are present without pleural effusion or pneumothorax. The cardiac silhouette is borderline enlarged. Dextroscoliosis of the thoracic spine is noted. Impression: Bibasilar atelectasis. Otherwise stable examination compared to 01/09/2018. Electronically Signed by Stoney Mcknight DO 05/27/2019 10:25 A
[2019-05-27 11:09] LABS: HEMOGLOBIN 17.3 g/dl (13.5-17.5); MEAN CORPUSCULAR HEMOGLOBIN 29.8 pg (27.0-33.0); MEAN CORPUSCULAR VOLUME 93.1 fl (80.0-96.0); PLATELET COUNT, AUTOMATED 226 10^3/uL (150-450); WHITE BLOOD COUNT 10.3 10^3/uL (4.0-10.0)
[2019-05-27 11:28] LABS: HEMOGLOBIN A1c 5.5 %
[2019-05-27 11:43] LABS: BILIRUBIN,TOTAL 0.6 MG/DL (0.2-1.0); CALCIUM LEVEL 9.5 MG/DL (8.8-10.2); CREATININE FOR GFR 1.45 MG/DL (0.70-1.30); GLOMERULAR FILTRATION RATE 51.7 (>49); POTASSIUM SERUM 4.3 MEQ/L (3.5-5.1); PROSTATIC SPECIFIC AG MONITOR 1.34 NG/ML (< 4.00); THYROID STIMULATING HORMONE 0.961 uIU/ML (0.358-3.740)
--- NOTE | 2019-05-27 15:33 | ECGEPIP ---
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
== END ==
LOC: M LAB 08:35
PROVIDERS: ATTEND Family Medicine
DX: J44.9 Chronic obstructive pulmonary disease, unspecified (principal); I10 Essential (primary) hypertension; J98.11 Atelectasis; Z79.899 Other long term (current) drug therapy

== ENCOUNTER → 2020-01-24 | Outpatient (CLI) | payer MEDICARE, MEDICAID ==
[~2020-01-24] MED LIST changes: +CYCL-707; -CYCL10TA; +OMEP1CAP73 PO; -OMEP20CA4 PO
== END ==
LOC: M LAB 08:29
PROVIDERS: ATTEND Family Medicine
DX: E29.1 Testicular hypofunction (principal)
CPT/HCPCS: 36415; 84403; G0103

== ENCOUNTER 2020-04-26 13:29 | Emergency (ER) | payer MEDICARE, MEDICAID ==
[~2020-04-26] VITALS: Ht 172.7 cm; Wt 93.2 kg
[2020-04-26] MEDS ORDERED: ALBU8.5H INH (13:36)
[2020-04-26] MEDS ORDERED: DOXA1TAB42 PO (13:36)
[2020-04-26] MEDS ORDERED: LEVO50TA5 PO (13:36)
[2020-04-26] MEDS ORDERED: MORPHINE 4 MG/ML 1ML VIAL/SYRINGE (J2270) IV ONE (14:00)
[2020-04-26 14:04] LABS: BASO % 0.3 % (0.0-1.0); EOS # 0.1 10^3/uL (0.0-0.5); EOS % 0.4 % (0.0-3.0); HEMATOCRIT 52.2 % (42.0-52.0); HEMOGLOBIN 17.1 g/dl (13.5-17.5); LYMPH % 7.8 % (24.0-44.0); MEAN CORPUSCULAR HEMOGLOBIN 30.8 pg (27.0-33.0); MEAN CORPUSCULAR HGB CONC 32.8 g/dl (32.0-36.5); MEAN CORPUSCULAR VOLUME 93.9 fl (80.0-96.0); MONO # 0.6 10^3/uL (0.0-0.8); MONO % 4.7 % (0.0-5.0); NEUTROPHILS # 11.5 10^3/uL (1.5-8.5); NEUTROPHILS % 86.2 % (36.0-66.0); PLATELET COUNT, AUTOMATED 197 10^3/uL (150-450); RED BLOOD COUNT 5.56 10^6/uL (4.30-6.10); WHITE BLOOD COUNT 13.3 10^3/uL (4.0-10.0)
[2020-04-26] MEDS ORDERED: NS 1,000 ML IV SCH (14:27)
[2020-04-26 14:37] LABS: ALBUMIN 3.4 GM/DL (3.2-5.2); ALT/SGPT 18 U/L (12-78); BILIRUBIN,DIRECT < 0.1 MG/DL (0.0-0.2); BILIRUBIN,TOTAL 0.3 MG/DL (0.2-1.0); BLOOD UREA NITROGEN 10 MG/DL (7-18); CALCIUM LEVEL 8.5 MG/DL (8.8-10.2); CARBON DIOXIDE LEVEL 29 MEQ/L (21-32); CHLORIDE LEVEL 109 MEQ/L (98-107); CK-MB VALUE MASS 1.5 NG/ML (<3.6); CPK CREATINE PHOSPHOKINASE 129 U/L (39-308); CREATININE FOR GFR 1.17 MG/DL (0.70-1.30); GLOMERULAR FILTRATION RATE > 60.0 (>49); GLUCOSE, FASTING 111 MG/DL (70-100); LIPASE 131 U/L (73-393); MB/CK RELATIVE INDEX 1.16 (< OR =4); POTASSIUM SERUM 3.9 MEQ/L (3.5-5.1); SODIUM LEVEL 141 MEQ/L (136-145); TOTAL PROTEIN 7.2 GM/DL (6.4-8.2); TROPONIN I < 0.02 NG/ML (< 0.10)
[2020-04-26] MEDS ORDERED: ISOVUE-370 76% 100ML VIAL As Ordered ONE (14:51)
--- NOTE | 2020-04-26 15:28 | REPVR ---
PROCEDURE INFORMATION: Exam: CT Angiography Chest With Contrast Exam date and time: 04/26/2020 3:03 PM Age: 69 years old Clinical indication: Chest pain; Additional info: Back pain flank pain R/O dissection TECHNIQUE: Imaging protocol: Computed tomographic angiography of the chest with intravenous contrast. 3D rendering (Not supervised by radiologist): MIP and/or 3D reconstructed images were created by the technologist. Radiation optimization: All CT scans at this facility use at least one of these dose optimization techniques: automated exposure control; mA and/or kV adjustment per patient size (includes targeted exams where dose is matched to clinical indication); or iterative reconstruction. Contrast material: ISO 370; Contrast volume: 100 ml; Contrast route: INTRAVENOUS (IV); COMPARISON: CT ANGIO CHEST 09/20/2015 4:57 PM FINDINGS: Pulmonary arteries: Normal. No pulmonary emboli. Aorta: Unremarkable. No aortic aneurysm. No aortic dissection. Lungs: Granuloma left lower lobe and left upper lobe the centrilobular type emphysema noted bilaterally and diffusely, right side greater than left, but predominantly in the upper and mid lung cardenas. Paraseptal type emphysema at the left lung base.. Pleural space: Unremarkable. No pneumothorax. No pleural effusion. Heart: Unremarkable. No cardiomegaly. No pericardial effusion. Lymph nodes: Calcified subcarinal and left perihilar lymph nodes. Bones/joints: Degenerative changes present within the dorsal spine. Soft tissues: Surgical clips in the right renal fossa.. IMPRESSION: 1. No aortic aneurysm or dissection. 2. Advanced emphysema Electronically signed by: Loli Sweet On 04/26/2020 15:28:03 PM
--- NOTE | 2020-04-26 15:37 | REPVR ---
PROCEDURE INFORMATION: Exam: CT Abdomen And Pelvis With Contrast Exam date and time: 04/26/2020 3:03 PM Age: 69 years old Clinical indication: Abdominal pain; Additional info: Back pain flank pain R/O dissection TECHNIQUE: Imaging protocol: Computed tomography of the abdomen and pelvis with intravenous contrast. 3D rendering (Not supervised by radiologist): MIP and/or 3D reconstructed images were created by the technologist. Radiation optimization: All CT scans at this facility use at least one of these dose optimization techniques: automated exposure control; mA and/or kV adjustment per patient size (includes targeted exams where dose is matched to clinical indication); or iterative reconstruction. Contrast material: ISO 370; Contrast volume: 100 ml; Contrast route: INTRAVENOUS (IV); COMPARISON: CT ABD PELVIS W/O FOL BY WIT 11/22/2016 5:53 PM FINDINGS: Liver: Normal. No mass. Gallbladder and bile ducts: Gallstone present in the fundus of the gallbladder. Pancreas: Normal. No ductal dilation. Spleen: Normal. No splenomegaly. Adrenals: Normal. No mass. Kidneys and ureters: Surgical clips in the right renal fossa. The right kidney is absent. 8 mm simple cyst upper pole left kidney. No hydronephrosis Stomach and bowel: Surgical clips present at the base of the cecum. Appendix: Not seen as a separate structure.. Intraperitoneal space: Unremarkable. No free air. No significant fluid collection. Vasculature: Unremarkable. No abdominal aortic aneurysm. Lymph nodes: Unremarkable. No enlarged lymph nodes. Urinary bladder: Unremarkable as visualized. Reproductive: Prostate measures 4.7 by 4.6 by 4.7 cm. Bones/joints: Accentuation of normal lumbar lordosis. Bridging osteophytes present at the thoracolumbar junction. Soft tissues: Healed midline abdominal incision. Mesh suggested applied to the anterior peritoneal surface of the abdominal wall IMPRESSION: 1. No acute findings. 2. Gallstone. 3. Simple cyst upper pole left kidney. No follow-up indicated. 4. No aneurysm COMMENTS: Consistent with the [employer]'s Incidental Findings Committee white paper (J Am Tawanda Radiol 2018): Any incidental renal lesion less than 1.0 cm or classified as too small to characterize, or any incidental cystic renal lesion characterized as simple-appearing, is likely benign. No follow-up imaging is recommended for these lesions per consensus recommendations based on imaging criteria. Electronically signed by: Loli Sweet On 04/26/2020 15:37:21 PM
[2020-04-26] MEDS ORDERED: KETOROLAC 30 MG/ML 1ML VIAL IV ONE (17:00)
[2020-04-26 18:26] VITALS: BP 102/62
--- NOTE | 2020-04-26 18:35 | ECGEPIP ---
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
== END 2020-04-26 18:10 | disposition home or self-care (01) ==
LOC: EDBD 13:29 → M ED 13:29
DX: R10.9 Unspecified abdominal pain (principal); M54.5 Low back pain; I44.4 Left anterior fascicular block; J44.9 Chronic obstructive pulmonary disease, unspecified; Z85.038 Personal history of other malignant neoplasm of large intestine; Z85.528 Personal history of other malignant neoplasm of kidney; Z85.028 Personal history of other malignant neoplasm of stomach; Z87.891 Personal history of nicotine dependence
CPT/HCPCS: 36415; 71275; 74177; 80048; 80076; 81001; 82550; 82553; 83690; 84484; 85025; 93005; 93041; 96361; 96374; 96375; 99284; J1885; J2270; Q9967

== ENCOUNTER → 2020-06-10 | Outpatient (CLI) | payer MEDICARE, MEDICAID ==
[~2020-06-10] MED LIST changes: +ALBU8.5H INH; +DOXA1TAB42 PO; +LEVO50TA5 PO
[2020-06-10 12:32] LABS: HEMATOCRIT 56.3 % (42.0-52.0); HEMOGLOBIN 18.3 g/dl (13.5-17.5); MEAN CORPUSCULAR HEMOGLOBIN 30.5 pg (27.0-33.0); MEAN CORPUSCULAR HGB CONC 32.5 g/dl (32.0-36.5); MEAN CORPUSCULAR VOLUME 93.8 fl (80.0-96.0); PLATELET COUNT, AUTOMATED 213 10^3/uL (150-450); WHITE BLOOD COUNT 10.1 10^3/uL (4.0-10.0)
[2020-06-10 12:57] LABS: HEMOGLOBIN A1c 5.4 %
[2020-06-10 16:24] LABS: ALBUMIN 3.7 GM/DL (3.2-5.2); ALT/SGPT 25 U/L (12-78); BILIRUBIN,TOTAL 0.5 MG/DL (0.2-1.0); BLOOD UREA NITROGEN 21 MG/DL (7-18); CARBON DIOXIDE LEVEL 32 MEQ/L (21-32); CHLORIDE LEVEL 107 MEQ/L (98-107); CHOLESTEROL LEVEL 177 MG/DL (<200); CHOLESTEROL RISK RATIO 4.657 (<5); CREATININE FOR GFR 1.21 MG/DL (0.70-1.30); GLOMERULAR FILTRATION RATE > 60.0 (>49); GLUCOSE, FASTING 101 MG/DL (70-100); HDL CHOLESTEROL 38 MG/DL (>40); LDL CHOLESTEROL 92 MG/DL (<100); NON-HDL-C 139 MG/DL; POTASSIUM SERUM 4.5 MEQ/L (3.5-5.1); SODIUM LEVEL 141 MEQ/L (136-145); TOTAL PROTEIN 6.8 GM/DL (6.4-8.2); TRIGLYCERIDES LEVEL 235 MG/DL (<150)
[2020-06-12 10:33] LABS: TESTOSTERONE 282 NG/DL (241-827)
== END ==
LOC: M LAB 11:06
PROVIDERS: ATTEND Family Medicine
DX: R53.83 Other fatigue (principal); I10 Essential (primary) hypertension; Z79.899 Other long term (current) drug therapy; R97.20 Elevated prostate specific antigen [PSA]

== ENCOUNTER → 2021-05-26 | Outpatient (CLI) | payer MEDICARE, MEDICAID ==
[~2021-05-26] MED LIST changes: +OMEP40CA4 PO; -OMEP40CA97 PO
[2021-05-26 09:23] LABS: HEMATOCRIT 50.5 % (42.0-52.0); HEMOGLOBIN 16.8 g/dl (13.5-17.5); MEAN CORPUSCULAR HEMOGLOBIN 31.2 pg (27.0-33.0); MEAN CORPUSCULAR HGB CONC 33.3 g/dl (32.0-36.5); MEAN CORPUSCULAR VOLUME 93.9 fl (80.0-96.0); PLATELET COUNT, AUTOMATED 196 10^3/uL (150-450); RED BLOOD COUNT 5.38 10^6/uL (4.30-6.10)
[2021-05-26 10:05] LABS: ALBUMIN 3.5 GM/DL (3.2-5.2); ALT/SGPT 27 U/L (12-78); BILIRUBIN,TOTAL 0.3 MG/DL (0.2-1.0); BLOOD UREA NITROGEN 14 MG/DL (7-18); CARBON DIOXIDE LEVEL 30 MEQ/L (21-32); CHLORIDE LEVEL 107 MEQ/L (98-107); CHOLESTEROL LEVEL 197 MG/DL (<200); CHOLESTEROL RISK RATIO 4.581 (<5); CREATININE FOR GFR 1.22 MG/DL (0.70-1.30); GLOMERULAR FILTRATION RATE > 60.0 (>49); GLUCOSE, FASTING 93 MG/DL (70-100); HDL CHOLESTEROL 43 MG/DL (>40); LDL CHOLESTEROL 100 MG/DL (<100); NON-HDL-C 154 MG/DL; POTASSIUM SERUM 4.4 MEQ/L (3.5-5.1); PROSTATIC SPECIFIC AG MONITOR 1.58 NG/ML (< 4.00); SODIUM LEVEL 142 MEQ/L (136-145); THYROID STIMULATING HORMONE 0.179 uIU/ML (0.358-3.740); TOTAL PROTEIN 6.9 GM/DL (6.4-8.2); TRIGLYCERIDES LEVEL 271 MG/DL (<150)
[2021-05-26 10:13] LABS: HEMOGLOBIN A1c 4.9 %
--- NOTE | 2021-05-26 10:55 | REP ---
INDICATION: HTN / LABS 1ST / EKG 2ND/ RAD 3RD. COMPARISON: CXR and CTA chest 05/27/2019. TECHNIQUE: PA and lateral FINDINGS: Hyperinflation with the changes of COPD are bullous emphysematous change in the mid and upper lung zones. Some basilar fibrotic changes are noted. Flattening of the diaphragms and increased AP diameter of the chest noted all of this is stable. See no dense consolidation, cardiomegaly, vascular redistribution or pulmonary edema. Calcifications of the aortic arch without aneurysm. Airway intact. No widening of the mediastinum. Prominence of the pulmonary arteries centrally and tapering rapidly suggesting pulmonary artery hypertension, presumably on the basis of COPD. Prominent epicardial fat pad on both sides the heart at the lung bases, stable degenerative changes in the thoracic spine without acute compression deformity or destructive lesion. No free air under the diaphragm.. IMPRESSION: 1. COPD with some basilar fibrotic change, emphysematous appearance of the upper and mid lung zones and pulmonary artery hypertension suggested. Findings stable. 2. No cardiomegaly, edema or effusion. 3. No definite acute infiltrate. <Electronically signed by Ludwin Pérez > 05/26/21 [id number]
--- NOTE | 2021-05-26 15:48 | ECGEPIP ---
[facility] Test Date: 2021-05-26 Pat Name: GALILEO KNIGHT Department: Room: - Gender: Male Resident Care Spec: halima : 1950 Requested By: Geraldine Amin Order Number: [id number] Reading MD: Francis Adams Measurements Intervals [place] Rate: 100 P: 54 WV: 122 QRS: -82 QRSD: 134 T: 42 QT: 372 QTc: 479 Interpretive Statements Sinus rhythm with premature supraventricular complexes Right bundle-branch block with left anterior fascicular block Increased heart rate and new PACs compared with 04/26/2020. Electronically Signed on 05-26-2021 15:48:14 EDT by Francis Adams
[2021-05-28 10:43] LABS: TESTOSTERONE 376 NG/DL (241-827)
== END ==
LOC: M LAB 08:43
PROVIDERS: ATTEND Family Medicine
DX: I10 Essential (primary) hypertension (principal); R97.20 Elevated prostate specific antigen [PSA]

== ENCOUNTER → 2022-06-05 | Outpatient (CLI) | payer MEDICARE, MEDICAID ==
[2022-06-05 17:56] LABS: BASO # 0.1 10^3/uL (0.0-0.2); BASO % 0.6 % (0.0-1.0); EOS # 0.2 10^3/uL (0.0-0.5); EOS % 1.5 % (0.0-3.0); HEMATOCRIT 58.4 % (42.0-52.0); HEMOGLOBIN 18.5 g/dl (13.5-17.5); LYMPH # 1.8 10^3/uL (1.5-5.0); LYMPH % 15.1 % (24.0-44.0); MEAN CORPUSCULAR HEMOGLOBIN 29.6 pg (27.0-33.0); MEAN CORPUSCULAR HGB CONC 31.7 g/dl (32.0-36.5); MEAN CORPUSCULAR VOLUME 93.3 fl (80.0-96.0); MONO % 8.1 % (2.0-8.0); NEUTROPHILS # 8.7 10^3/uL (1.5-8.5); NEUTROPHILS % 74.4 % (36.0-66.0); PLATELET COUNT, AUTOMATED 219 10^3/uL (150-450); RED BLOOD COUNT 6.26 10^6/uL (4.30-6.10); WHITE BLOOD COUNT 11.8 10^3/uL (4.0-10.0)
[2022-06-05 19:50] LABS: ALBUMIN 3.9 G/DL (3.2-5.2); BILIRUBIN,TOTAL 0.5 MG/DL (0.3-1.2); CHOLESTEROL RISK RATIO 4.12 (<5); CREATININE FOR GFR 1.35 MG/DL (0.70-1.30); FREE T4 1.34 NG/DL (0.89-1.76); GLOMERULAR FILTRATION RATE 55.6 (>42); HDL CHOLESTEROL 42.9 MG/DL (>40); LDL CHOLESTEROL 99.1 MG/DL (<100); POTASSIUM SERUM 5.1 MMOL/L (3.5-5.1); THYROID STIMULATING HORMONE 0.47 uIU/ML (0.55-4.78); TOTAL PROTEIN 6.8 G/DL (5.7-8.2)
== END ==
LOC: M PLALAB 16:06
PROVIDERS: ATTEND Physician Assistant
DX: R79.89 Other specified abnormal findings of blood chemistry (principal); E03.9 Hypothyroidism, unspecified
CPT/HCPCS: 36415; 80053; 80061; 83036; 84402; 84403; 84439; 84443; 85025; G0103

== ENCOUNTER → 2022-09-03 | Outpatient (CLI) | payer MEDICARE ==
[2022-09-03 17:33] LABS: BASO # 0.1 10^3/uL (0.0-0.2); BASO % 0.5 % (0.0-1.0); EOS # 0.2 10^3/uL (0.0-0.5); EOS % 1.5 % (0.0-3.0); HEMOGLOBIN 16.7 g/dl (13.5-17.5); LYMPH % 16.9 % (24.0-44.0); MEAN CORPUSCULAR HEMOGLOBIN 30.8 pg (27.0-33.0); MEAN CORPUSCULAR HGB CONC 32.7 g/dl (32.0-36.5); MEAN CORPUSCULAR VOLUME 94.1 fl (80.0-96.0); MONO # 0.8 10^3/uL (0.0-0.8); MONO % 7.2 % (2.0-8.0); NEUTROPHILS # 8.5 10^3/uL (1.5-8.5); NEUTROPHILS % 73.3 % (36.0-66.0); PLATELET COUNT, AUTOMATED 200 10^3/uL (150-450); RED BLOOD COUNT 5.42 10^6/uL (4.30-6.10); WHITE BLOOD COUNT 11.6 10^3/uL (4.0-10.0)
[2022-09-03 17:45] LABS: ALBUMIN 3.9 G/DL (3.2-5.2); ALKALINE PHOSPHATASE 82 U/L (46-116); ALT/SGPT 21 U/L (7.0-40); AST/SGOT < 8 U/L (<34); BILIRUBIN,TOTAL 0.5 MG/DL (0.3-1.2); BLOOD UREA NITROGEN 20 MG/DL (9-23); CALCIUM LEVEL 9.5 MG/DL (8.3-10.6); CARBON DIOXIDE LEVEL 32 MMOL/L (20-31); CHLORIDE LEVEL 106 MMOL/L (98-107); CREATININE FOR GFR 1.12 MG/DL (0.70-1.30); GLOMERULAR FILTRATION RATE > 60.0 (>42); GLUCOSE, FASTING 101 MG/DL (74-106); POTASSIUM SERUM 4.4 MMOL/L (3.5-5.1); SODIUM LEVEL 141 MMOL/L (136-145)
[2022-09-03 17:46] LABS: THYROID STIMULATING HORMONE 0.686 uIU/ML (0.55-4.78)
[2022-09-03 17:47] LABS: FREE T4 1.23 NG/DL (0.89-1.76)
== END ==
LOC: M PLALAB 15:01
PROVIDERS: ATTEND Physician Assistant
DX: E29.1 Testicular hypofunction (principal); E03.9 Hypothyroidism, unspecified

== ENCOUNTER → 2023-03-04 | Outpatient (CLI) | payer MEDICARE, MEDICAID ==
[2023-03-04 16:02] LABS: BASO # 0.1 10^3/uL (0.0-0.2); BASO % 0.6 % (0.0-1.0); EOS # 0.2 10^3/uL (0.0-0.5); EOS % 1.5 % (0.0-3.0); HEMATOCRIT 54.7 % (42.0-52.0); HEMOGLOBIN 17.4 g/dl (13.5-17.5); LYMPH # 1.6 10^3/uL (1.5-5.0); LYMPH % 13.6 % (24.0-44.0); MEAN CORPUSCULAR HEMOGLOBIN 30.6 pg (27.0-33.0); MEAN CORPUSCULAR HGB CONC 31.8 g/dl (32.0-36.5); MEAN CORPUSCULAR VOLUME 96.1 fl (80.0-96.0); MONO % 8.9 % (2.0-8.0); NEUTROPHILS # 8.5 10^3/uL (1.5-8.5); NEUTROPHILS % 74.6 % (36.0-66.0); PLATELET COUNT, AUTOMATED 186 10^3/uL (150-450); RED BLOOD COUNT 5.69 10^6/uL (4.30-6.10); WHITE BLOOD COUNT 11.4 10^3/uL (4.0-10.0)
[2023-03-04 16:25] LABS: ALBUMIN 3.7 G/DL (3.2-5.2); ALKALINE PHOSPHATASE 75 U/L (46-116); ALT/SGPT 22 U/L (7.0-40); AST/SGOT 11 U/L (<34); BILIRUBIN,TOTAL 0.5 MG/DL (0.3-1.2); BLOOD UREA NITROGEN 18 MG/DL (9-23); CARBON DIOXIDE LEVEL 26 MMOL/L (20-31); CHLORIDE LEVEL 104 MMOL/L (98-107); CHOLESTEROL LEVEL 169 MG/DL (<200); CHOLESTEROL RISK RATIO 3.47 (<5); CREATININE FOR GFR 1.11 MG/DL (0.70-1.30); GLOMERULAR FILTRATION RATE > 60.0 (>42); GLUCOSE, FASTING 107 MG/DL (74-106); HDL CHOLESTEROL 48.7 MG/DL (>40); LDL CHOLESTEROL 88.1 MG/DL (<100); NON-HDL-C 120.3 MG/DL; POTASSIUM SERUM 4.4 MMOL/L (3.5-5.1); SODIUM LEVEL 139 MMOL/L (136-145); THYROID STIMULATING HORMONE 0.584 uIU/ML (0.55-4.78); TOTAL PROTEIN 6.7 G/DL (5.7-8.2); TRIGLYCERIDES LEVEL 161 MG/DL (<150)
[2023-03-04 16:29] LABS: HEMOGLOBIN A1c 4.9 % (4.0-6.0)
[2023-03-06 20:09] LABS: TESTOSTERONE FREE (DIRECT) 5.3 pg/mL (6.6-18.1)
== END ==
LOC: M PLALAB 12:07
PROVIDERS: ATTEND Physician Assistant
DX: E29.1 Testicular hypofunction (principal); N40.0 Benign prostatic hyperplasia without lower urinary tract symptoms; K21.9 Gastro-esophageal reflux disease without esophagitis; E03.9 Hypothyroidism, unspecified; J44.9 Chronic obstructive pulmonary disease, unspecified; D72.819 Decreased white blood cell count, unspecified; Z79.899 Other long term (current) drug therapy

== ENCOUNTER → 2023-06-26 | Outpatient (CLI) | payer MEDICARE, MEDICAID | LOC: M PLAIMG 11:56 | PROVIDERS: ATTEND Physician Assistant | DX: I51.7 Cardiomegaly (principal); J44.9 Chronic obstructive pulmonary disease, unspecified; R05.1 Acute cough; R06.02 Shortness of breath ==

== ENCOUNTER → 2023-08-12 | Outpatient (REF) | payer MEDICARE, MEDICAID | LOC: M LAB REF 17:09 | PROVIDERS: ATTEND Otolaryngology | DX: H60.8X1 Other otitis externa, right ear (principal) ==

== ENCOUNTER 2023-08-19 09:00 | Emergency (ER) | payer MEDICARE, MEDICAID ==
[~2023-08-19] VITALS: Ht 167.6 cm; Wt 93.2 kg
[2023-08-19 09:17] VITALS: TEMP 98.2
[2023-08-19 09:51] LABS: VENOUS BASE EXCESS -1.3 (-2.0-2.0); VENOUS HCO3 28.4 MMOL/L (23.0-27.0); VENOUS O2 SATURATION 54.5 % (60.0-80.0); VENOUS PARTIAL PRESSURE CO2 68.5 mmHg (38.0-50.0); VENOUS PARTIAL PRESSURE O2 31.1 mmHg (30.0-50.0); VENOUS PH 7.235 UNITS (7.330-7.430); VENOUS STANDARD HCO3 22.3 MMOL/L; VENOUS TOTAL CO2 30.5 MMOL/L (24.0-28.0)
[2023-08-19 09:58] LABS: BASO # 0.1 10^3/uL (0.0-0.2); BASO % 0.5 % (0.0-1.0); EOS # 0.2 10^3/uL (0.0-0.5); EOS % 2.2 % (0.0-3.0); HEMATOCRIT 48.9 % (42.0-52.0); HEMOGLOBIN 16.2 g/dl (13.5-17.5); LYMPH # 1.5 10^3/uL (1.5-5.0); LYMPH % 13.8 % (24.0-44.0); MEAN CORPUSCULAR HEMOGLOBIN 31.3 pg (27.0-33.0); MEAN CORPUSCULAR HGB CONC 33.1 g/dl (32.0-36.5); MEAN CORPUSCULAR VOLUME 94.6 fl (80.0-96.0); MONO % 8.9 % (2.0-8.0); NEUTROPHILS % 74.1 % (36.0-66.0); PLATELET COUNT, AUTOMATED 185 10^3/uL (150-450); RED BLOOD COUNT 5.17 10^6/uL (4.30-6.10); WHITE BLOOD COUNT 10.8 10^3/uL (4.0-10.0)
[2023-08-19 10:25] LABS: ALBUMIN 3.5 G/DL (3.2-5.2); ALKALINE PHOSPHATASE 63 U/L (46-116); ALT/SGPT 21 U/L (7.0-40); AST/SGOT 33 U/L (<34); BILIRUBIN,DIRECT 0.1 MG/DL (<0.4); BILIRUBIN,TOTAL 0.4 MG/DL (0.3-1.2); BLOOD UREA NITROGEN 15 MG/DL (9-23); CALCIUM LEVEL 8.9 MG/DL (8.3-10.6); CARBON DIOXIDE LEVEL 30 MMOL/L (20-31); CHLORIDE LEVEL 103 MMOL/L (98-107); CREATININE FOR GFR 0.99 MG/DL (0.70-1.30); GLOMERULAR FILTRATION RATE > 60.0 (>42); GLUCOSE, FASTING 119 MG/DL (74-106); POTASSIUM SERUM 4.8 MMOL/L (3.5-5.1); SODIUM LEVEL 140 MMOL/L (136-145); TOTAL PROTEIN 6.7 G/DL (5.7-8.2)
[2023-08-19 13:22] LABS: ABG BASE EXCESS 2.5 (-2.0-2.0); ABG HCO3 28.3 MMOL/L (22.0-26.0); ABG O2 SATURATION 96.1 % (95.0-99.0); ABG PARTIAL PRESSURE CO2 47.7 mmHg (35.0-45.0); ABG PARTIAL PRESSURE O2 80.7 mmHg (75.0-100.0); ABG STANDARD HCO3 26.6 MMOL/L. (22.0-26.0); ABG TOTAL CO2 29.8 MMOL/L (23.0-31.0); ABG pH (ARTERIAL) 7.391 UNITS (7.350-7.450)
[2023-08-19 14:45] VITALS: BP 137/72; O2SAT 96
== END 2023-08-19 15:30 | disposition home or self-care (01) ==
LOC: M ED 09:00 → EDBD 09:00 → M ED 15:30
DX: R22.43 Localized swelling, mass and lump, lower limb, bilateral (principal); R91.8 Other nonspecific abnormal finding of lung field; J44.9 Chronic obstructive pulmonary disease, unspecified; K21.9 Gastro-esophageal reflux disease without esophagitis; Z87.891 Personal history of nicotine dependence; Z85.038 Personal history of other malignant neoplasm of large intestine; Z85.528 Personal history of other malignant neoplasm of kidney; Z79.899 Other long term (current) drug therapy; Z88.8 Allergy status to other drugs, medicaments and biological substances

== ENCOUNTER → 2023-09-03 | Outpatient (CLI) | payer MEDICARE, MEDICAID ==
[2023-09-03 16:34] LABS: FREE T4 1.01 NG/DL (0.89-1.76)
[2023-09-03 16:35] LABS: THYROID STIMULATING HORMONE 1.948 uIU/ML (0.55-4.78)
[2023-09-03 16:46] LABS: HEMOGLOBIN A1c 5.1 % (4.0-6.0)
[2023-09-05 23:07] LABS: TESTOSTERONE FREE (DIRECT) 8.5 pg/mL (6.6-18.1)
== END ==
LOC: M PLALAB 12:30
PROVIDERS: ATTEND Physician Assistant
DX: R79.89 Other specified abnormal findings of blood chemistry (principal); E03.9 Hypothyroidism, unspecified; Z13.1 Encounter for screening for diabetes mellitus

== ENCOUNTER → 2024-01-01 | Outpatient (CLI) | payer MEDICARE, MEDICAID ==
[2024-01-01 15:33] LABS: ALKALINE PHOSPHATASE 81 U/L (46-116); ALT/SGPT 26 U/L (7.0-40); AST/SGOT 20 U/L (<34); BASO # 0.1 10^3/uL (0.0-0.2); BASO % 0.6 % (0.0-1.0); BILIRUBIN,TOTAL 0.7 MG/DL (0.3-1.2); BLOOD UREA NITROGEN 15 MG/DL (9-23); CALCIUM LEVEL 9.1 MG/DL (8.3-10.6); CARBON DIOXIDE LEVEL 30 MMOL/L (20-31); CHLORIDE LEVEL 102 MMOL/L (98-107); CHOLESTEROL LEVEL 191 MG/DL (<200); CHOLESTEROL RISK RATIO 3.71 (<5); CREATININE FOR GFR 1.06 MG/DL (0.70-1.30); EOS # 0.3 10^3/uL (0.0-0.5); GLOMERULAR FILTRATION RATE > 60.0 (>42); GLUCOSE, FASTING 111 MG/DL (74-106); HDL CHOLESTEROL 51.4 MG/DL (>40); HEMATOCRIT 48.3 % (42.0-52.0); HEMOGLOBIN 15.9 g/dl (13.5-17.5); LDL CHOLESTEROL 108.8 MG/DL (<100); LYMPH # 1.4 10^3/uL (1.5-5.0); LYMPH % 12.5 % (24.0-44.0); MEAN CORPUSCULAR HEMOGLOBIN 31.2 pg (27.0-33.0); MEAN CORPUSCULAR HGB CONC 32.9 g/dl (32.0-36.5); MEAN CORPUSCULAR VOLUME 94.7 fl (80.0-96.0); MONO # 0.9 10^3/uL (0.0-0.8); MONO % 8.2 % (2.0-8.0); NEUTROPHILS # 8.1 10^3/uL (1.5-8.5); NEUTROPHILS % 75.1 % (36.0-66.0); NON-HDL-C 139.6 MG/DL; PLATELET COUNT, AUTOMATED 202 10^3/uL (150-450); POTASSIUM SERUM 4.5 MMOL/L (3.5-5.1); PSA SCREENING 1.31 NG/ML (< 4.00); SODIUM LEVEL 138 MMOL/L (136-145); TOTAL PROTEIN 6.8 G/DL (5.7-8.2); TRIGLYCERIDES LEVEL 154 MG/DL (<150); WHITE BLOOD COUNT 10.8 10^3/uL (4.0-10.0)
== END ==
LOC: M PLALAB 12:14
PROVIDERS: ATTEND Physician Assistant
DX: R53.1 Weakness (principal); N40.0 Benign prostatic hyperplasia without lower urinary tract symptoms; E03.9 Hypothyroidism, unspecified; Z13.220 Encounter for screening for lipoid disorders; Z12.5 Encounter for screening for malignant neoplasm of prostate
CPT/HCPCS: 36415; 80053; 80061; 85025; G0103

== ENCOUNTER → 2024-01-27 | Outpatient (CLI) | payer MEDICARE, MEDICAID | LOC: M SOG 07:58 | PROVIDERS: ATTEND Physician Assistant | DX: M54.50 Low back pain, unspecified (principal) ==

== ENCOUNTER → 2024-05-20 | Outpatient (CLI) | payer MEDICARE, MEDICAID | LOC: M RAD 16:43 | PROVIDERS: ATTEND Physician Assistant | DX: Z12.2 Encounter for screening for malignant neoplasm of respiratory organs (principal); Z87.891 Personal history of nicotine dependence ==

== ENCOUNTER 2024-08-10 01:55 | Emergency (ER) | payer MEDICARE, MEDICAID ==
[~2024-08-10] VITALS: Ht 170.2 cm; Wt 94.2 kg
[2024-08-10 02:17] LABS: VENOUS BASE EXCESS 1.2 (-2.0-2.0); VENOUS HCO3 26.6 MMOL/L (23.0-27.0); VENOUS O2 SATURATION 97.3 % (60.0-80.0); VENOUS PARTIAL PRESSURE CO2 44.7 mmHg (38.0-50.0); VENOUS PH 7.392 UNITS (7.330-7.430); VENOUS STANDARD HCO3 25.5 MMOL/L; VENOUS TOTAL CO2 27.9 MMOL/L (24.0-28.0)
[2024-08-10 02:28] LABS: BASO % 0.4 % (0.0-1.0); EOS # 0.2 10^3/uL (0.0-0.5); EOS % 1.4 % (0.0-3.0); HEMATOCRIT 49.5 % (42.0-52.0); HEMOGLOBIN 16.3 g/dl (13.5-17.5); LYMPH # 0.9 10^3/uL (1.5-5.0); LYMPH % 8.6 % (24.0-44.0); MEAN CORPUSCULAR HEMOGLOBIN 30.7 pg (27.0-33.0); MEAN CORPUSCULAR HGB CONC 32.9 g/dl (32.0-36.5); MEAN CORPUSCULAR VOLUME 93.2 fl (80.0-96.0); MONO # 1.3 10^3/uL (0.0-0.8); MONO % 12.1 % (2.0-8.0); NEUTROPHILS # 8.1 10^3/uL (1.5-8.5); NEUTROPHILS % 77.1 % (36.0-66.0); PLATELET COUNT, AUTOMATED 158 10^3/uL (150-450); RED BLOOD COUNT 5.31 10^6/uL (4.30-6.10); WHITE BLOOD COUNT 10.5 10^3/uL (4.0-10.0)
[2024-08-10 02:53] LABS: ALBUMIN 3.7 G/DL (3.2-5.2); ALKALINE PHOSPHATASE 77 U/L (40-129); ALT/SGPT 24 U/L (7.0-40); AST/SGOT 28 U/L (<34); BILIRUBIN,DIRECT 0.2 MG/DL (<0.4); BILIRUBIN,TOTAL 0.6 MG/DL (0.3-1.2); BLOOD UREA NITROGEN 17 MG/DL (9-23); CALCIUM LEVEL 8.9 MG/DL (8.3-10.6); CARBON DIOXIDE LEVEL 26 MMOL/L (20-31); CHLORIDE LEVEL 105 MMOL/L (98-107); CREATININE FOR GFR 0.98 MG/DL (0.70-1.30); GLOMERULAR FILTRATION RATE > 60.0 (>42); GLUCOSE, FASTING 103 MG/DL (74-106); POTASSIUM SERUM 4.7 MMOL/L (3.5-5.1); SODIUM LEVEL 140 MMOL/L (136-145); TOTAL PROTEIN 7.3 G/DL (5.7-8.2)
[2024-08-10 02:55] LABS: CPK CREATINE PHOSPHOKINASE 110 U/L (46-171)
[2024-08-10] MEDS: ACETAMINOPHEN 500 MG TAB PO ONE (04:37)
[2024-08-10] MEDS: DOXYCYCLINE HYCLATE 100MG TABLET PO ONE (04:53)
[2024-08-10] MEDS: methylPREDNISolone 125MG 2ML VIAL IV ONE (04:53)
[2024-08-10] MEDS: IPRATROPIUM 0.5MG/ALBUTEROL 2.5MG INH SOL UD 3ML (DUONEB) NEB ONE (05:02)
[2024-08-10] MEDS ORDERED: DOXY-441 PO (05:52)
[2024-08-10] MEDS ORDERED: PRED20TA PO (05:52)
[2024-08-10 08:50] VITALS: BP 129/75; TEMP 98; O2SAT 95
== END 2024-08-10 08:52 | disposition home or self-care (01) ==
LOC: M ED 01:55
DX: J21.1 Acute bronchiolitis due to human metapneumovirus (principal); I45.2 Bifascicular block; R00.0 Tachycardia, unspecified; E03.9 Hypothyroidism, unspecified; N40.0 Benign prostatic hyperplasia without lower urinary tract symptoms; J44.9 Chronic obstructive pulmonary disease, unspecified; K21.9 Gastro-esophageal reflux disease without esophagitis; Z85.09 Personal history of malignant neoplasm of other digestive organs; Z87.891 Personal history of nicotine dependence; Z88.8 Allergy status to other drugs, medicaments and biological substances; Z79.51 Long term (current) use of inhaled steroids; Z79.899 Other long term (current) drug therapy; Z79.52 Long term (current) use of systemic steroids
CPT/HCPCS: 71045; 80048; 80076; 82550; 82553; 82803; 83605; 84484; 85025; 87040; 87486; 87581; 87633; 87798; 93005; 93041; 94640; 94760; 96374; 99285; J2919

== ENCOUNTER 2024-08-18 15:14 | Emergency (ER) | payer MEDICARE, MEDICAID ==
[~2024-08-18 15:14] MED LIST changes: +DOXY-441 PO; +PRED20TA PO
[2024-08-18 15:33] VITALS: TEMP 96.8
[2024-08-18] MEDS: methylPREDNISolone 125MG 2ML VIAL IV ONE (16:01)
[2024-08-18 16:08] LABS: BASO % 0.2 % (0.0-1.0); EOS # 0.1 10^3/uL (0.0-0.5); EOS % 0.7 % (0.0-3.0); HEMATOCRIT 48.6 % (42.0-52.0); LYMPH # 1.4 10^3/uL (1.5-5.0); LYMPH % 9.6 % (24.0-44.0); MEAN CORPUSCULAR HEMOGLOBIN 30.7 pg (27.0-33.0); MEAN CORPUSCULAR HGB CONC 32.9 g/dl (32.0-36.5); MEAN CORPUSCULAR VOLUME 93.1 fl (80.0-96.0); MONO # 1.2 10^3/uL (0.0-0.8); MONO % 8.1 % (2.0-8.0); NEUTROPHILS # 11.3 10^3/uL (1.5-8.5); NEUTROPHILS % 78.7 % (36.0-66.0); PLATELET COUNT, AUTOMATED 211 10^3/uL (150-450); RED BLOOD COUNT 5.22 10^6/uL (4.30-6.10); VENOUS BASE EXCESS 2.2 (-2.0-2.0); VENOUS HCO3 27.9 MMOL/L (23.0-27.0); VENOUS O2 SATURATION 98.5 % (60.0-80.0); VENOUS PARTIAL PRESSURE CO2 46.8 mmHg (38.0-50.0); VENOUS PARTIAL PRESSURE O2 128.6 mmHg (30.0-50.0); VENOUS PH 7.393 UNITS (7.330-7.430); VENOUS STANDARD HCO3 26.4 MMOL/L; VENOUS TOTAL CO2 29.3 MMOL/L (24.0-28.0); WHITE BLOOD COUNT 14.4 10^3/uL (4.0-10.0)
[2024-08-18 16:38] LABS: ALBUMIN 3.1 G/DL (3.2-5.2); ALKALINE PHOSPHATASE 57 U/L (40-129); ALT/SGPT 31 U/L (7.0-40); AST/SGOT 18 U/L (<34); BILIRUBIN,DIRECT 0.2 MG/DL (<0.4); BILIRUBIN,TOTAL 0.6 MG/DL (0.3-1.2); BLOOD UREA NITROGEN 32 MG/DL (9-23); CALCIUM LEVEL 8.5 MG/DL (8.3-10.6); CARBON DIOXIDE LEVEL 29 MMOL/L (20-31); CHLORIDE LEVEL 103 MMOL/L (98-107); CREATININE FOR GFR 0.96 MG/DL (0.70-1.30); GLOMERULAR FILTRATION RATE > 60.0 (>42); GLUCOSE, FASTING 94 MG/DL (74-106); POTASSIUM SERUM 4.2 MMOL/L (3.5-5.1); SODIUM LEVEL 143 MMOL/L (136-145)
[2024-08-18 16:40] LABS: THYROID STIMULATING HORMONE 0.748 uIU/ML (0.55-4.78); THYROXINE (T4) 7.1 UG/DL (4.5-10.9)
[2024-08-18 18:00] VITALS: O2SAT 95
[2024-08-18 18:15] VITALS: BP 134/62
[2024-08-18] MEDS ORDERED: PRED10TA2 PO (18:21)
== END 2024-08-18 19:50 | disposition home or self-care (01) ==
LOC: M ED 15:14 → EDBD 15:14 → M ED 19:50
DX: J44.1 Chronic obstructive pulmonary disease with (acute) exacerbation (principal); K21.9 Gastro-esophageal reflux disease without esophagitis; C18.9 Malignant neoplasm of colon, unspecified; Z88.8 Allergy status to other drugs, medicaments and biological substances; Z79.51 Long term (current) use of inhaled steroids; Z79.899 Other long term (current) drug therapy; Z79.52 Long term (current) use of systemic steroids
CPT/HCPCS: 71045; 80048; 80076; 82803; 83605; 83880; 84145; 84436; 84443; 85025; 87040; 87486; 87581; 87633; 87798; 93005; 93041; 94760; 96374; 99285; J2919

== ENCOUNTER 2024-09-05 12:35 | Emergency (ER) | payer MEDICARE, MEDICAID ==
[~2024-09-05] VITALS: Ht 162.6 cm; Wt 83.2 kg
[~2024-09-05 12:35] MED LIST changes: +PRED10TA2 PO
[2024-09-05 12:48] VITALS: TEMP 97.2
[2024-09-05 13:17] LABS: BASO % 0.3 % (0.0-1.0); EOS # 0.1 10^3/uL (0.0-0.5); EOS % 0.7 % (0.0-3.0); HEMATOCRIT 48.5 % (42.0-52.0); HEMOGLOBIN 15.9 g/dl (13.5-17.5); LYMPH # 0.8 10^3/uL (1.5-5.0); LYMPH % 7.8 % (24.0-44.0); MEAN CORPUSCULAR HEMOGLOBIN 31.4 pg (27.0-33.0); MEAN CORPUSCULAR HGB CONC 32.8 g/dl (32.0-36.5); MEAN CORPUSCULAR VOLUME 95.8 fl (80.0-96.0); MONO % 10.7 % (2.0-8.0); NEUTROPHILS # 7.7 10^3/uL (1.5-8.5); NEUTROPHILS % 80.1 % (36.0-66.0); PLATELET COUNT, AUTOMATED 126 10^3/uL (150-450); RED BLOOD COUNT 5.06 10^6/uL (4.30-6.10); WHITE BLOOD COUNT 9.6 10^3/uL (4.0-10.0)
[2024-09-05] MEDS: MORPHINE 2 MG/ML 1ML VIAL IV PRN (13:30)
[2024-09-05] MEDS: ONDANSETRON 4MG 2ML VIAL IV ONE (13:30)
[2024-09-05 13:45] LABS: LIPASE 38 U/L (12-53)
[2024-09-05 14:17] LABS: ALBUMIN 3.2 G/DL (3.2-5.2); ALKALINE PHOSPHATASE 73 U/L (40-129); ALT/SGPT 31 U/L (7.0-40); AST/SGOT 18 U/L (<34); BILIRUBIN,DIRECT 0.2 MG/DL (<0.4); BILIRUBIN,TOTAL 0.6 MG/DL (0.3-1.2); BLOOD UREA NITROGEN 18 MG/DL (9-23); CALCIUM LEVEL 8.5 MG/DL (8.3-10.6); CARBON DIOXIDE LEVEL 32 MMOL/L (20-31); CHLORIDE LEVEL 103 MMOL/L (98-107); CREATININE FOR GFR 0.92 MG/DL (0.70-1.30); GLOMERULAR FILTRATION RATE > 60.0 (>42); GLUCOSE, FASTING 90 MG/DL (74-106); POTASSIUM SERUM 4.4 MMOL/L (3.5-5.1); SODIUM LEVEL 142 MMOL/L (136-145); TOTAL PROTEIN 6.3 G/DL (5.7-8.2)
[2024-09-05] MEDS ORDERED: ISOVUE-370 76% 100ML VIAL As Ordered ONE (14:28)
[2024-09-05 15:45] VITALS: BP 130/61; O2SAT 94
== END 2024-09-05 17:07 | disposition home or self-care (01) ==
LOC: EDBD 12:35 → M ED 12:35
DX: K80.20 Calculus of gallbladder without cholecystitis without obstruction (principal); I45.2 Bifascicular block; K21.9 Gastro-esophageal reflux disease without esophagitis; E78.5 Hyperlipidemia, unspecified; C18.9 Malignant neoplasm of colon, unspecified; Z88.8 Allergy status to other drugs, medicaments and biological substances; Z79.51 Long term (current) use of inhaled steroids; Z79.52 Long term (current) use of systemic steroids; Z79.899 Other long term (current) drug therapy
CPT/HCPCS: 71045; 71275; 74174; 76705; 80048; 80076; 83605; 83690; 83880; 85025; 93005; 93041; 96374; 96375; 99285; J2405; Q9967

== ENCOUNTER 2024-09-13 22:03 | Inpatient (IN) | payer MEDICARE, MEDICAID ==
[~2024-09-13] VITALS: Ht 172.7 cm; Wt 86.2 kg
[2024-09-13 22:40] LABS: VENOUS BASE EXCESS 7.1 (-2.0-2.0); VENOUS HCO3 34.1 MMOL/L (23.0-27.0); VENOUS O2 SATURATION 82.9 % (60.0-80.0); VENOUS PARTIAL PRESSURE CO2 56.8 mmHg (38.0-50.0); VENOUS PH 7.396 UNITS (7.330-7.430); VENOUS STANDARD HCO3 30.5 MMOL/L; VENOUS TOTAL CO2 35.8 MMOL/L (24.0-28.0)
[2024-09-13 22:48] LABS: BASO % 0.3 % (0.0-1.0); EOS # 0.1 10^3/uL (0.0-0.5); EOS % 1.3 % (0.0-3.0); HEMATOCRIT 47.1 % (42.0-52.0); HEMOGLOBIN 15.1 g/dl (13.5-17.5); LYMPH # 0.7 10^3/uL (1.5-5.0); LYMPH % 9.3 % (24.0-44.0); MEAN CORPUSCULAR HEMOGLOBIN 30.3 pg (27.0-33.0); MEAN CORPUSCULAR HGB CONC 32.1 g/dl (32.0-36.5); MEAN CORPUSCULAR VOLUME 94.4 fl (80.0-96.0); MONO # 0.8 10^3/uL (0.0-0.8); MONO % 10.3 % (2.0-8.0); NEUTROPHILS # 6.2 10^3/uL (1.5-8.5); NEUTROPHILS % 78.3 % (36.0-66.0); PLATELET COUNT, AUTOMATED 184 10^3/uL (150-450); RED BLOOD COUNT 4.99 10^6/uL (4.30-6.10); WHITE BLOOD COUNT 7.9 10^3/uL (4.0-10.0)
[2024-09-13] MEDS: ASPIRIN 81MG CHEW TABLET PO ONE (22:55)
[2024-09-13 23:10] LABS: ALKALINE PHOSPHATASE 78 U/L (40-129); ALT/SGPT 79 U/L (7.0-40); AST/SGOT 38 U/L (<34); BILIRUBIN,DIRECT 0.2 MG/DL (<0.4); BILIRUBIN,TOTAL 0.5 MG/DL (0.3-1.2); BLOOD UREA NITROGEN 16 MG/DL (9-23); CALCIUM LEVEL 8.7 MG/DL (8.3-10.6); CARBON DIOXIDE LEVEL 33 MMOL/L (20-31); CHLORIDE LEVEL 102 MMOL/L (98-107); CK-MB VALUE MASS 2.6 NG/ML (<3.6); CREATININE FOR GFR 0.92 MG/DL (0.70-1.30); GLOMERULAR FILTRATION RATE > 60.0 (>42); GLUCOSE, FASTING 108 MG/DL (74-106); POTASSIUM SERUM 4.6 MMOL/L (3.5-5.1); SODIUM LEVEL 141 MMOL/L (136-145); TOTAL PROTEIN 6.3 G/DL (5.7-8.2)
[2024-09-13 23:23] LABS: CPK CREATINE PHOSPHOKINASE 60 U/L (46-171); MB/CK RELATIVE INDEX 4.33 (< OR =4)
[2024-09-14 00:21] LABS: CK-MB VALUE MASS 2.3 NG/ML (<3.6)
[2024-09-14 00:24] LABS: MB/CK RELATIVE INDEX 5.75 (< OR =4)
[2024-09-14] MEDS ORDERED: ISOVUE-370 76% 100ML VIAL As Ordered ONE (01:23)
[2024-09-14] MEDS: ACETAMINOPHEN *IV* 1,000 MG in IV 1 EA IV ONE (03:09)
[2024-09-14] MEDS: PIPERACILLIN/TAZOBACTAM SOD 4.5 GM in DEXTROSE 5% (D5W) ADV/MINI-BAG 50 ML IV ONE (03:29)
[2024-09-14] MEDS: AZITHROMYCIN 250MG TABLET PO SCH (05:21)
[2024-09-14] MEDS: cefTRIAXone SOD 1 GM in DEXTROSE 5% (D5W) ADV/MINI-BAG 50 ML IV SCH (05:21)
[2024-09-14] MEDS ORDERED: BUDE10.7 INH (05:40)
[2024-09-14] MEDS ORDERED: ALBU2.5V10 INH (05:40)
[2024-09-14] MEDS ORDERED: TEST75GE TOP (05:40)
[2024-09-14] MEDS ORDERED: LEVA45AE INH (05:40)
[2024-09-14] MEDS ORDERED: TRAZ-252 PO (05:40)
[2024-09-14] MEDS ORDERED: VONO20TA PO (05:40)
[2024-09-14] MEDS ORDERED: HOME MED LIST COMPLETE! XX SCH (05:40)
[2024-09-14] MEDS ORDERED: THERTAB52 PO (05:40)
[2024-09-14] MEDS: PANTOPRAZOLE 40MG VIAL IV SCH (05:56)
[2024-09-14 07:01] LABS: BASO % 0.4 % (0.0-1.0); HEMATOCRIT 46.3 % (42.0-52.0); HEMOGLOBIN 15.2 g/dl (13.5-17.5); LYMPH # 0.3 10^3/uL (1.5-5.0); LYMPH % 5.6 % (24.0-44.0); MEAN CORPUSCULAR HEMOGLOBIN 29.9 pg (27.0-33.0); MEAN CORPUSCULAR HGB CONC 32.8 g/dl (32.0-36.5); MEAN CORPUSCULAR VOLUME 91.1 fl (80.0-96.0); MONO # 0.1 10^3/uL (0.0-0.8); MONO % 1.9 % (2.0-8.0); NEUTROPHILS # 5.2 10^3/uL (1.5-8.5); NEUTROPHILS % 91.4 % (36.0-66.0); PLATELET COUNT, AUTOMATED 179 10^3/uL (150-450); RED BLOOD COUNT 5.08 10^6/uL (4.30-6.10); WHITE BLOOD COUNT 5.7 10^3/uL (4.0-10.0)
[2024-09-14] MEDS: ENOXAPARIN 40MG/0.4ML SYRINGE (J1650 PER 10MG) SC SCH (07:27)
[2024-09-14] MEDS: guaiFENesin ER TABLET 600 MG TAB PO SCH (07:29)
[2024-09-14 07:30] LABS: ALBUMIN 2.8 G/DL (3.2-5.2); ALKALINE PHOSPHATASE 75 U/L (40-129); ALT/SGPT 67 U/L (7.0-40); AST/SGOT 19 U/L (<34); BILIRUBIN,TOTAL 0.5 MG/DL (0.3-1.2); BLOOD UREA NITROGEN 16 MG/DL (9-23); CALCIUM LEVEL 8.7 MG/DL (8.3-10.6); CARBON DIOXIDE LEVEL 32 MMOL/L (20-31); CHLORIDE LEVEL 101 MMOL/L (98-107); GLOMERULAR FILTRATION RATE > 60.0 (>42); GLUCOSE, FASTING 153 MG/DL (74-106); POTASSIUM SERUM 4.5 MMOL/L (3.5-5.1); SODIUM LEVEL 140 MMOL/L (136-145)
[2024-09-14] MEDS: IPRATROPIUM 0.5MG/ALBUTEROL 2.5MG INH SOL UD 3ML (DUONEB) INH SCH (07:47)
[2024-09-14] MEDS: MORPHINE 4 MG/ML 1ML VIAL IV PRN (09:37)
[2024-09-14 10:30] LABS: PROCALCITONIN 0.13 ng/ml
[2024-09-14 20:58] VITALS: BP 107/80; TEMP 98.2; O2SAT 94
[2024-09-15 04:13] VITALS: BP 106/65; TEMP 97.2; O2SAT 95
[2024-09-15 06:00] LABS: BASO % 0.3 % (0.0-1.0); EOS # 0.1 10^3/uL (0.0-0.5); EOS % 0.6 % (0.0-3.0); HEMATOCRIT 47.1 % (42.0-52.0); HEMOGLOBIN 15.3 g/dl (13.5-17.5); LYMPH # 1.1 10^3/uL (1.5-5.0); LYMPH % 10.5 % (24.0-44.0); MEAN CORPUSCULAR HEMOGLOBIN 30.3 pg (27.0-33.0); MEAN CORPUSCULAR HGB CONC 32.5 g/dl (32.0-36.5); MEAN CORPUSCULAR VOLUME 93.3 fl (80.0-96.0); NEUTROPHILS # 8.6 10^3/uL (1.5-8.5); PLATELET COUNT, AUTOMATED 203 10^3/uL (150-450); RED BLOOD COUNT 5.05 10^6/uL (4.30-6.10); WHITE BLOOD COUNT 10.9 10^3/uL (4.0-10.0)
[2024-09-15] MEDS ORDERED: ALBUTEROL SULFATE 2.5MG/0.5ML INH NEB SOLN INH SCH (06:05)
[2024-09-15] MEDS ORDERED: LEVALBUTEROL HFA 45MCG/ACT 15GM INHALER INH PRN (06:05)
[2024-09-15 06:21] LABS: BLOOD UREA NITROGEN 22 MG/DL (9-23); CALCIUM LEVEL 8.5 MG/DL (8.3-10.6); CARBON DIOXIDE LEVEL 33 MMOL/L (20-31); CHLORIDE LEVEL 106 MMOL/L (98-107); CREATININE FOR GFR 0.96 MG/DL (0.70-1.30); GLOMERULAR FILTRATION RATE > 60.0 (>42); GLUCOSE, FASTING 99 MG/DL (74-106); MAGNESIUM LEVEL 1.7 MG/DL (1.8-2.4); POTASSIUM SERUM 4.2 MMOL/L (3.5-5.1); SODIUM LEVEL 145 MMOL/L (136-145)
[2024-09-15] MEDS: MAGNESIUM OXIDE 400MG TAB (MAG-OX) PO ONE (08:51)
[2024-09-15] MEDS: VONOPRAZAN 20 MG PO SCH (08:52)
[2024-09-15 12:00] VITALS: BP 108/59; TEMP 98.1; O2SAT 95
[2024-09-15] MEDS ORDERED: ACETAMINOPHEN 500 MG TAB PO PRN (14:35)
[2024-09-15 20:00] VITALS: BP 115/79; TEMP 98.1; O2SAT 93
[2024-09-15] MEDS: traZODone 25MG PER 1/2 TABLET PO SCH (20:56)
[2024-09-16 03:41] VITALS: BP 115/76; TEMP 98.1; O2SAT 93
[2024-09-16 05:59] LABS: BASO # 0.1 10^3/uL (0.0-0.2); BASO % 0.5 % (0.0-1.0); EOS # 0.1 10^3/uL (0.0-0.5); EOS % 1.5 % (0.0-3.0); HEMATOCRIT 47.8 % (42.0-52.0); HEMOGLOBIN 15.5 g/dl (13.5-17.5); LYMPH # 1.1 10^3/uL (1.5-5.0); LYMPH % 11.1 % (24.0-44.0); MEAN CORPUSCULAR HEMOGLOBIN 30.2 pg (27.0-33.0); MEAN CORPUSCULAR HGB CONC 32.4 g/dl (32.0-36.5); MEAN CORPUSCULAR VOLUME 93.2 fl (80.0-96.0); MONO # 1.1 10^3/uL (0.0-0.8); MONO % 11.3 % (2.0-8.0); NEUTROPHILS # 7.2 10^3/uL (1.5-8.5); PLATELET COUNT, AUTOMATED 235 10^3/uL (150-450); RED BLOOD COUNT 5.13 10^6/uL (4.30-6.10); WHITE BLOOD COUNT 9.6 10^3/uL (4.0-10.0)
[2024-09-16 06:19] LABS: BLOOD UREA NITROGEN 24 MG/DL (9-23); CALCIUM LEVEL 8.6 MG/DL (8.3-10.6); CARBON DIOXIDE LEVEL 32 MMOL/L (20-31); CHLORIDE LEVEL 104 MMOL/L (98-107); GLOMERULAR FILTRATION RATE > 60.0 (>42); GLUCOSE, FASTING 98 MG/DL (74-106); MAGNESIUM LEVEL 1.8 MG/DL (1.8-2.4); POTASSIUM SERUM 4.3 MMOL/L (3.5-5.1); SODIUM LEVEL 144 MMOL/L (136-145)
[2024-09-16] MEDS ORDERED: CEFD300CAP PO ×2 (10:09→13:51)
[2024-09-16 12:00] VITALS: BP 113/74; TEMP 98.4; O2SAT 96
== END 2024-09-16 14:33 | disposition home or self-care (01) | DRG 193 ==
LOC: EDBD 22:03 → M ED 22:03 → M ED INP 09-14 03:51 → M MSPAV 09-14 20:58
PROVIDERS: ADMIT Student in an Organized Health Care Education/Training Program; ATTEND Internal Medicine
DX: J18.9 Pneumonia, unspecified organism (principal); J96.21 Acute and chronic respiratory failure with hypoxia; J44.0 Chronic obstructive pulmonary disease with (acute) lower respiratory infection; J44.1 Chronic obstructive pulmonary disease with (acute) exacerbation; Z66 Do not resuscitate; Z99.81 Dependence on supplemental oxygen; E83.42 Hypomagnesemia; R74.01 Elevation of levels of liver transaminase levels; E03.9 Hypothyroidism, unspecified; N40.0 Benign prostatic hyperplasia without lower urinary tract symptoms; K21.9 Gastro-esophageal reflux disease without esophagitis; M41.9 Scoliosis, unspecified; Z85.038 Personal history of other malignant neoplasm of large intestine; Z90.49 Acquired absence of other specified parts of digestive tract; Z79.890 Hormone replacement therapy; Z79.899 Other long term (current) drug therapy; Z88.8 Allergy status to other drugs, medicaments and biological substances

== ENCOUNTER → 2024-09-28 | Outpatient (CLI) | payer MEDICARE, MEDICAID ==
[~2024-09-28] MED LIST changes: +ALBU2.5V10 INH; +BUDE10.7 INH; +CEFD300CAP PO; +LEVA45AE INH; +TEST75GE TOP; +THERTAB52 PO; +TRAZ-252 PO; +VONO20TA PO
[2024-09-28 19:59] LABS: BASO # 0.1 10^3/uL (0.0-0.2); BASO % 0.7 % (0.0-1.0); EOS % 0.5 % (0.0-3.0); HEMATOCRIT 47.1 % (42.0-52.0); HEMOGLOBIN 14.9 g/dl (13.5-17.5); LYMPH # 1.2 10^3/uL (1.5-5.0); LYMPH % 14.8 % (24.0-44.0); MEAN CORPUSCULAR HGB CONC 31.6 g/dl (32.0-36.5); MEAN CORPUSCULAR VOLUME 94.8 fl (80.0-96.0); MONO # 0.8 10^3/uL (0.0-0.8); NEUTROPHILS # 6.2 10^3/uL (1.5-8.5); NEUTROPHILS % 74.5 % (36.0-66.0); PLATELET COUNT, AUTOMATED 189 10^3/uL (150-450); RED BLOOD COUNT 4.97 10^6/uL (4.30-6.10); WHITE BLOOD COUNT 8.3 10^3/uL (4.0-10.0)
[2024-09-28 20:22] LABS: ALBUMIN 3.3 G/DL (3.2-5.2); ALKALINE PHOSPHATASE 69 U/L (40-129); ALT/SGPT 19 U/L (7.0-40); AST/SGOT 17 U/L (<34); BILIRUBIN,TOTAL 0.4 MG/DL (0.3-1.2); BLOOD UREA NITROGEN 18 MG/DL (9-23); CALCIUM LEVEL 9.3 MG/DL (8.3-10.6); CARBON DIOXIDE LEVEL 27 MMOL/L (20-31); CHLORIDE LEVEL 104 MMOL/L (98-107); CREATININE FOR GFR 0.96 MG/DL (0.70-1.30); GLOMERULAR FILTRATION RATE > 60.0 (>42); GLUCOSE, FASTING 123 MG/DL (74-106); MAGNESIUM LEVEL 1.6 MG/DL (1.8-2.4); POTASSIUM SERUM 4.3 MMOL/L (3.5-5.1); SODIUM LEVEL 144 MMOL/L (136-145); TOTAL PROTEIN 6.5 G/DL (5.7-8.2)
== END ==
LOC: M PLALAB 14:44
PROVIDERS: ATTEND Student in an Organized Health Care Education/Training Program
DX: Z09 Encounter for follow-up examination after completed treatment for conditions other than malignant neoplasm (principal)

== ENCOUNTER → 2024-11-19 | Outpatient (CLI) | payer MEDICARE, MEDICAID | LOC: M PLAIMG 10:14 | PROVIDERS: ATTEND Student in an Organized Health Care Education/Training Program | DX: J44.9 Chronic obstructive pulmonary disease, unspecified (principal) ==

== ENCOUNTER → 2024-11-19 | Outpatient (CLI) | payer MEDICARE, MEDICAID ==
[2024-11-19 13:39] LABS: BLOOD UREA NITROGEN 21 MG/DL (9-23); CALCIUM LEVEL 9.1 MG/DL (8.3-10.6); CARBON DIOXIDE LEVEL 28 MMOL/L (20-31); CHLORIDE LEVEL 103 MMOL/L (98-107); CREATININE FOR GFR 0.85 MG/DL (0.70-1.30); GLOMERULAR FILTRATION RATE > 90.0 (>42); GLUCOSE, FASTING 90 MG/DL (74-106); MAGNESIUM LEVEL 1.9 MG/DL (1.8-2.4); POTASSIUM SERUM 4.2 MMOL/L (3.5-5.1); SODIUM LEVEL 141 MMOL/L (136-145)
== END ==
LOC: M PLALAB 11:00
PROVIDERS: ATTEND Student in an Organized Health Care Education/Training Program
DX: R60.0 Localized edema (principal)

== ENCOUNTER 2025-01-28 18:30 | Emergency (ER) | payer MEDICARE, MEDICAID ==
[~2025-01-28] VITALS: Ht 172.7 cm; Wt 104.5 kg
[2025-01-28 19:23] VITALS: TEMP 97.8
[2025-01-28 21:01] VITALS: BP 104/58
[2025-01-28 21:30] VITALS: O2SAT 98
== END 2025-01-28 22:04 | disposition home or self-care (01) ==
LOC: M ED 18:30
DX: S00.03XA Contusion of scalp, initial encounter (principal); Y92.019 Unspecified place in single-family (private) house as the place of occurrence of the external cause; Y93.9 Activity, unspecified; Y99.9 Unspecified external cause status; W01.198A Fall on same level from slipping, tripping and stumbling with subsequent striking against other object, initial encounter; J44.9 Chronic obstructive pulmonary disease, unspecified; Z85.038 Personal history of other malignant neoplasm of large intestine; Z88.8 Allergy status to other drugs, medicaments and biological substances

== ENCOUNTER → 2025-02-24 | Outpatient (CLI) | payer MEDICARE, MEDICAID | LOC: M RAD 09:27 | PROVIDERS: ATTEND Student in an Organized Health Care Education/Training Program | DX: M54.12 Radiculopathy, cervical region (principal) ==

== ENCOUNTER → 2025-03-09 | Outpatient (CLI) | payer MEDICARE, MEDICAID | LOC: M PLAIMG 13:09 | PROVIDERS: ATTEND Student in an Organized Health Care Education/Training Program | DX: J44.9 Chronic obstructive pulmonary disease, unspecified (principal) ==

== ENCOUNTER 2025-03-30 09:42 | Outpatient (RCR) | payer MEDICARE, MEDICAID ==
[2025-04-18] MEDS ORDERED: LEVA45AE INH (18:56)
[2025-04-18] MEDS ORDERED: OMEP40CA5 PO (18:56)
[2025-04-18] MEDS ORDERED: GABA-1172 PO (18:56)
[2025-04-18] MEDS ORDERED: LIDO1PAD TOP (18:56)
[2025-04-18] MEDS ORDERED: ATOR40TA75 PO (18:59)
== END 2025-04-19 ==
LOC: M PT 09:42
PROVIDERS: ATTEND Student in an Organized Health Care Education/Training Program
DX: M54.12 Radiculopathy, cervical region (principal)

== ENCOUNTER 2025-04-18 11:09 | Inpatient (IN) | payer MEDICARE, MEDICAID ==
[~2025-04-18] VITALS: Ht 172.7 cm; Wt 89.3 kg
[2025-04-18 11:56] LABS: BASO # 0.0 10^3/uL (0.0-0.2); BASO % 0.2 % (0.0-1.0); EOS # 0.0 10^3/uL (0.0-0.5); EOS % 0.0 % (0.0-3.0); LYMPH # 0.6 10^3/uL (1.5-5.0); LYMPH % 4.7 % (24.0-44.0); MONO # 0.5 10^3/uL (0.0-0.8); MONO % 4.0 % (2.0-8.0); NEUTROPHILS # 11.9 10^3/uL (1.5-8.5); NEUTROPHILS % 90.4 % (36.0-66.0); PLATELET COUNT, AUTOMATED 215 10^3/uL (150-450)
[2025-04-18 12:27] LABS: ALT/SGPT 20.0 U/L (7.0-40); AST/SGOT 24.0 U/L (<34); CALCIUM LEVEL 10.6 MG/DL (8.3-10.6); CARBON DIOXIDE LEVEL 39.0 MMOL/L (20-31); CHLORIDE LEVEL 94.0 MMOL/L (98-107); CREATININE FOR GFR 1.09 MG/DL (0.70-1.30); GLOMERULAR FILTRATION RATE 71.7 (>42); POTASSIUM SERUM 4.1 MMOL/L (3.5-5.1); SODIUM LEVEL 145.0 MMOL/L (136-145)
[2025-04-18 12:38] LABS: INR 0.93
[2025-04-18] MEDS: ONDANSETRON 4MG 2ML VIAL IV ONE (13:00)
[2025-04-18 13:02] LABS: CK-MB VALUE MASS 1.3 NG/ML (<3.6)
[2025-04-18 13:08] LABS: CPK CREATINE PHOSPHOKINASE 47.0 U/L (46-171); MB/CK RELATIVE INDEX 2.76 (< OR =4)
[2025-04-18] MEDS: IPRATROPIUM 0.5 MG/ALBUTEROL 2.5 MG INH SOL UD 3 ML NEB ONE (13:09)
[2025-04-18 13:10] LABS: ABG BASE EXCESS 10.7 (-2.0-2.0); ABG HCO3 36.3 MMOL/L (22.0-26.0); ABG O2 SATURATION 94.8 % (95.0-99.0); ABG PARTIAL PRESSURE CO2 50.5 mmHg (35.0-45.0); ABG PARTIAL PRESSURE O2 70.9 mmHg (75.0-100.0); ABG STANDARD HCO3 34.4 MMOL/L. (22.0-26.0); ABG TOTAL CO2 37.9 MMOL/L (23.0-31.0); ABG pH (ARTERIAL) 7.475 UNITS (7.350-7.450)
[2025-04-18] MEDS ORDERED: ISOVUE-370 76% 100 ML VIAL As Ordered ONE (13:15)
[2025-04-18 13:33] LABS: CK-MB VALUE MASS < 1.0 NG/ML (<3.6)
[2025-04-18 13:34] LABS: CPK CREATINE PHOSPHOKINASE 38 U/L (46-171)
[2025-04-18] MEDS: INSULIN LISPRO (NovoLOG) PER UNIT SC SCH (18:00)
[2025-04-18] MEDS ORDERED: LEVALBUTEROL 1.25 MG 0.5ML CONCENTRATE NEB NEB PRN (18:30)
[2025-04-18] MEDS ORDERED: DEXTROSE 50% 50 ML SYRINGE IV PRN (18:30)
[2025-04-18] MEDS ORDERED: GLUCAGON INJ 1 MG VIAL SC PRN (18:30)
[2025-04-18] MEDS ORDERED: GLUCOSE 4 GM CHEW PO PRN (18:30)
[2025-04-18] MEDS ORDERED: OMEP40CA5 PO (18:56)
[2025-04-18] MEDS ORDERED: LEVA45AE INH (18:56)
[2025-04-18] MEDS ORDERED: GABA-1172 PO (18:56)
[2025-04-18] MEDS ORDERED: LIDO1PAD TOP (18:56)
[2025-04-18] MEDS ORDERED: ATOR40TA75 PO (18:59)
[2025-04-18] MEDS ORDERED: HOME MED LIST COMPLETE! XX SCH (19:00)
[2025-04-18] MEDS: PANTOPRAZOLE 40MG VIAL IV SCH (19:27)
[2025-04-18] MEDS: NS (Normal Saline) 0.9% 1,000 ML IV ONE (19:27)
[2025-04-18] MEDS: LEVALBUTEROL 1.25 MG 0.5ML CONCENTRATE NEB NEB SCH (19:46)
[2025-04-18] MEDS: D5W/0.45% SODIUM CHLORIDE 1,000 ML IV SCH (22:16)
[2025-04-19] MEDS: METHOCARBAMOL 1,000 MG/10 ML VIAL IV ONE ×2 (02:51→18:52)
[2025-04-19] MEDS: ACETAMINOPHEN *IV* 1,000 MG in IV 1 EA IV ONE (02:52)
[2025-04-19] MEDS: LIDOCAINE 5% PATCH TD PRN (03:02)
[2025-04-19] MEDS: ONDANSETRON 4MG 2ML VIAL IV PRN (08:10)
[2025-04-19 10:09] LABS: PLATELET COUNT, AUTOMATED 184 10^3/uL (150-450)
[2025-04-19 10:38] LABS: CALCIUM LEVEL 8.6 MG/DL (8.3-10.6); CARBON DIOXIDE LEVEL 30.0 MMOL/L (20-31); CHLORIDE LEVEL 103.0 MMOL/L (98-107); CREATININE FOR GFR 1.04 MG/DL (0.70-1.30); GLOMERULAR FILTRATION RATE 75.8 (>42); MAGNESIUM LEVEL 1.9 MG/DL (1.8-2.4); POTASSIUM SERUM 3.9 MMOL/L (3.5-5.1); SODIUM LEVEL 140.0 MMOL/L (136-145)
[2025-04-19] MEDS: ACETAMINOPHEN *IV* 1,000 MG in IV 1 EA IV SCH (11:02)
[2025-04-19 11:16] LABS: C REACTIVE PROTEIN QUANTITATIV 0.93 MG/DL (<1.0)
[2025-04-19] MEDS: PIPERACILLIN/TAZOBACTAM SOD 3.375 GM in DEXTROSE 5% (D5W) ADV/MINI-BAG 50 ML IV SCH (12:04)
[2025-04-19 14:50] VITALS: BP 112/65; TEMP 97.9; O2SAT 96
[2025-04-19 20:38] VITALS: BP 119/66; TEMP 97.5; O2SAT 94
[2025-04-19] MEDS: MORPHINE 4 MG/ML 1 ML VIAL IV ONE (20:58)
[2025-04-20] MEDS: METHOCARBAMOL 1,000 MG/10 ML VIAL IV ONE ×3 (02:56→18:35)
[2025-04-20 03:26] VITALS: BP 117/68; TEMP 97.5; O2SAT 92
[2025-04-20 06:21] LABS: BASO # 0.1 10^3/uL (0.0-0.2); BASO % 0.4 % (0.0-1.0); EOS # 0.0 10^3/uL (0.0-0.5); EOS % 0.3 % (0.0-3.0); LYMPH # 1.3 10^3/uL (1.5-5.0); LYMPH % 10.2 % (24.0-44.0); MONO # 1.2 10^3/uL (0.0-0.8); MONO % 9.8 % (2.0-8.0); NEUTROPHILS # 9.9 10^3/uL (1.5-8.5); NEUTROPHILS % 78.9 % (36.0-66.0); PLATELET COUNT, AUTOMATED 149 10^3/uL (150-450)
[2025-04-20 06:51] LABS: CALCIUM LEVEL 8.6 MG/DL (8.3-10.6); CARBON DIOXIDE LEVEL 29.0 MMOL/L (20-31); CHLORIDE LEVEL 105.0 MMOL/L (98-107); CREATININE FOR GFR 0.97 MG/DL (0.70-1.30); GLOMERULAR FILTRATION RATE 82.4 (>42); MAGNESIUM LEVEL 1.8 MG/DL (1.8-2.4); POTASSIUM SERUM 3.9 MMOL/L (3.5-5.1); SODIUM LEVEL 139.0 MMOL/L (136-145)
[2025-04-20] MEDS: D5W/0.45% SODIUM CHLORIDE 1,000 ML IV SCH (09:16)
[2025-04-20 12:00] VITALS: BP 108/67; TEMP 98.1; O2SAT 98
[2025-04-20] MEDS ORDERED: LIDOCAINE 2% 100 MG/5 ML SDV (FOR ANES.) As Ordered ONE (15:28)
[2025-04-20] MEDS: PIPERACILLIN/TAZOBACTAM SOD 3.375 GM in DEXTROSE 5% (D5W) ADV/MINI-BAG 50 ML IV SCH (17:11)
[2025-04-20 20:00] VITALS: BP 116/65; TEMP 97.9; O2SAT 93
== END 2025-04-20 20:22 | disposition short-term general hospital (02) | DRG 381 ==
LOC: M ED 11:09 → M ED INP 18:27 → M MSPAV 04-19 14:47
PROVIDERS: ADMIT Internal Medicine; ATTEND Internal Medicine
PROC: 0DJ08ZZ Inspection of Upper Intestinal Tract, Via Natural or Artificial Opening Endoscopic (ICD-10-PCS; principal; 2025-04-20 12:45)
DX: K31.1 Adult hypertrophic pyloric stenosis (principal); J96.10 Chronic respiratory failure, unspecified whether with hypoxia or hypercapnia; E87.3 Alkalosis; J44.9 Chronic obstructive pulmonary disease, unspecified; K21.00 Gastro-esophageal reflux disease with esophagitis, without bleeding; E03.9 Hypothyroidism, unspecified; E29.1 Testicular hypofunction; G89.29 Other chronic pain; M54.2 Cervicalgia; R93.3 Abnormal findings on diagnostic imaging of other parts of digestive tract; R11.2 Nausea with vomiting, unspecified; Z66 Do not resuscitate; Z99.81 Dependence on supplemental oxygen; Z85.038 Personal history of other malignant neoplasm of large intestine; Z85.528 Personal history of other malignant neoplasm of kidney; Z90.5 Acquired absence of kidney; Z90.49 Acquired absence of other specified parts of digestive tract; Z79.899 Other long term (current) drug therapy

== ENCOUNTER 2025-06-01 14:48 | Emergency (ER) | payer MEDICARE, MEDICAID ==
[~2025-06-01] VITALS: Ht 172.7 cm; Wt 91.2 kg
[~2025-06-01 14:48] MED LIST changes: +ATOR40TA75 PO; +GABA-1172 PO; +LIDO1PAD TOP; +OMEP40CA5 PO
[2025-06-01 15:34] LABS: BASO # 0.1 10^3/uL (0.0-0.2); BASO % 0.5 % (0.0-1.0); EOS # 0.2 10^3/uL (0.0-0.5); EOS % 1.5 % (0.0-3.0); LYMPH # 1.2 10^3/uL (1.5-5.0); LYMPH % 11.1 % (24.0-44.0); MONO # 1.1 10^3/uL (0.0-0.8); MONO % 9.5 % (2.0-8.0); NEUTROPHILS # 8.6 10^3/uL (1.5-8.5); NEUTROPHILS % 77.0 % (36.0-66.0); PLATELET COUNT, AUTOMATED 173 10^3/uL (150-450)
[2025-06-01] MEDS: ONDANSETRON 4MG/2ML VIAL IV ONE (15:40)
[2025-06-01 15:50] LABS: ALT/SGPT 164 U/L (7.0-40); AST/SGOT 166 U/L (<34); CALCIUM LEVEL 8.9 MG/DL (8.3-10.6); CARBON DIOXIDE LEVEL 32 MMOL/L (20-31); CHLORIDE LEVEL 102 MMOL/L (98-107); CREATININE FOR GFR 0.92 MG/DL (0.70-1.30); GLOMERULAR FILTRATION RATE 87.8 (>42); POTASSIUM SERUM 4.8 MMOL/L (3.5-5.1); SODIUM LEVEL 143 MMOL/L (136-145)
[2025-06-01] MEDS: NS (Normal Saline) 0.9% 1,000 ML IV SCH (18:14)
[2025-06-01] MEDS: PANTOPRAZOLE 40MG VIAL IV ONE (21:21)
[2025-06-01] MEDS: PIPERACILLIN/TAZOBACTAM SOD 4.5 GM in DEXTROSE 5% (D5W) ADV/MINI-BAG 50 ML IV ONE (21:21)
[2025-06-01] MEDS: GABAPENTIN 300 MG CAP PO ONE (21:46)
[2025-06-01] MEDS: NS (Normal Saline) 0.9% 1,000 ML IV ONE (22:20)
[2025-06-01 23:00] VITALS: TEMP 98
[2025-06-02] MEDS ORDERED: LEVALBUTEROL 1.25 MG 0.5ML CONCENTRATE NEB NEB PRN (00:05)
[2025-06-02] MEDS ORDERED: ONDANSETRON 4MG/2ML VIAL IV PRN (00:05)
[2025-06-02] MEDS: MORPHINE 2 MG/ML 1 ML VIAL IV PRN (02:17)
[2025-06-02] MEDS: PIPERACILLIN/TAZOBACTAM SOD 3.375 GM in DEXTROSE 5% (D5W) ADV/MINI-BAG 50 ML IV SCH (03:27)
[2025-06-02 07:00] VITALS: BP 116/63
[2025-06-02 07:15] VITALS: O2SAT 95
[2025-06-02] MEDS ORDERED: SYMBICORT 160/4.5MCG INHALER 6GM INH SCH (08:00)
[2025-06-02] MEDS ORDERED: GABAPENTIN 300 MG CAP PO SCH (09:00)
== END 2025-06-02 08:49 | disposition left against medical advice (07) ==
LOC: M ED 14:48 → EDBD 14:48 → M ED 06-02 08:49
DX: K85.90 Acute pancreatitis without necrosis or infection, unspecified (principal); E80.6 Other disorders of bilirubin metabolism; R11.2 Nausea with vomiting, unspecified; I45.2 Bifascicular block; I45.81 Long QT syndrome; K21.9 Gastro-esophageal reflux disease without esophagitis; C18.9 Malignant neoplasm of colon, unspecified; F17.210 Nicotine dependence, cigarettes, uncomplicated; Z88.8 Allergy status to other drugs, medicaments and biological substances; Z79.899 Other long term (current) drug therapy; Z79.810 Long term (current) use of selective estrogen receptor modulators (SERMs); Z53.9 Procedure and treatment not carried out, unspecified reason
CPT/HCPCS: 71045; 74181; 76705; 80048; 80076; 83690; 85025; 87486; 87581; 87633; 87798; 93005; 93041; 94760; 96361; 96365; 96366; 99285; J2405; J2470; J2543

== ENCOUNTER → 2025-07-09 | Outpatient (CLI) | payer MEDICARE, MEDICAID ==
[2025-07-09 11:07] LABS: BASO # 0.1 10^3/uL (0.0-0.2); BASO % 0.5 % (0.0-1.0); EOS # 0.3 10^3/uL (0.0-0.5); EOS % 2.7 % (0.0-3.0); LYMPH # 2.2 10^3/uL (1.5-5.0); LYMPH % 22.6 % (24.0-44.0); MONO # 0.8 10^3/uL (0.0-0.8); MONO % 8.1 % (2.0-8.0); NEUTROPHILS # 6.3 10^3/uL (1.5-8.5); NEUTROPHILS % 65.6 % (36.0-66.0); PLATELET COUNT, AUTOMATED 165 10^3/uL (150-450)
[2025-07-09 11:32] LABS: ALT/SGPT 16 U/L (7.0-40); AST/SGOT 16 U/L (<34); CALCIUM LEVEL 8.9 MG/DL (8.3-10.6); CARBON DIOXIDE LEVEL 30 MMOL/L (20-31); CHLORIDE LEVEL 104 MMOL/L (98-107); CHOLESTEROL LEVEL 156 MG/DL (<200); CHOLESTEROL RISK RATIO 3.22 (<5); CREATININE FOR GFR 0.87 MG/DL (0.70-1.30); GLOMERULAR FILTRATION RATE > 90.0 (>42); LDL CHOLESTEROL 80.1 MG/DL (<100); NON-HDL-C 107.7 MG/DL; POTASSIUM SERUM 4.1 MMOL/L (3.5-5.1); SODIUM LEVEL 142 MMOL/L (136-145); TRIGLYCERIDES LEVEL 138 MG/DL (<150)
[2025-07-09 11:41] LABS: ESTIMATED AVERAGE GLUCOSE 103.0 MG/DL (60-110)
== END ==
LOC: M LAB 09:53
PROVIDERS: ATTEND Student in an Organized Health Care Education/Training Program
DX: Z00.00 Encounter for general adult medical examination without abnormal findings (principal); E78.5 Hyperlipidemia, unspecified; Z79.899 Other long term (current) drug therapy

== ENCOUNTER → 2025-07-18 | Outpatient (CLI) | payer MEDICARE, MEDICAID | LOC: M PLAIMG 12:46 | PROVIDERS: ATTEND Student in an Organized Health Care Education/Training Program | DX: H92.02 Otalgia, left ear (principal) ==